=== PATIENT | female | born 1955 | race American Indian/Alaskan Native ===

== ENCOUNTER 2017-09-10 06:42 | Inpatient (IN) | payer MEDICARE ==
[2017-09-09 13:41] VITALS: BMI 38.4
--- NOTE | 2017-09-10 07:34 | CP.PCM.HP ---
History of Present Illness - History of Present Illness History of Present Illness: Patient is a 61 y/o F c/o Past Patient History - Past Medical History & Family History Past Medical History?: Yes - Past Social History Smoking Status: Never Smoked - CARDIAC Hx Cardiac Disorders: No - PULMONARY Hx Respiratory Disorders: No - NEUROLOGICAL Hx Neurological Disorder: No - HEENT Hx HEENT Problems: Yes Hx Glaucoma: Yes (tubes placed) - RENAL Hx Chronic Kidney Disease: No - ENDOCRINE/METABOLIC Hx Endocrine Disorders: No - HEMATOLOGICAL/ONCOLOGICAL Hx Blood Disorders: No - INTEGUMENTARY Hx Dermatological Problems: No - MUSCULOSKELETAL/RHEUMATOLOGICAL Hx Musculoskeletal Disorders: Yes Hx Arthritis: Yes (hips clint) - GASTROINTESTINAL Hx Gastrointestinal Disorders: No - GENITOURINARY/GYNECOLOGICAL Hx Genitourinary Disorders: No - PSYCHIATRIC Hx Psychophysiologic Disorder: No - SURGICAL HISTORY Hx Surgeries: Yes Hx Orthopedic Surgery: Yes (totoal right hip) - ANESTHESIA Hx Anesthesia: Yes Hx Anesthesia Reactions: No Hx Malignant Hyperthermia: No Has any member of the family had a problem w/ anesthesia?: No Meds Allergies/Adverse Reactions: Allergies Allergy/AdvReac Type Severity Reaction Status Date / Time erythromycin base Allergy RASH Verified 09/09/17 13:45 erth Allergy RASH Uncoded 09/09/17 13:45
--- NOTE | 2017-09-10 08:22 | CP.PCM.HP ---
History of Present Illness - History of Present Illness History of Present Illness: Chief Complaint : Left hip pain HPI: 61 y/o lady with hx of OA , Hx of Right THR, Lumbar Radiculopathy, Glaucoma, came in for scheduled Left THR. Patient has had long history of Osteoarthritis of both hips , spine and her hands. She had a hx of Right THR in 2010 for severe primary OA of her right hip. For the past few years her left hip has been bothering her and this worsened the past year making ambulation difficult. She has been treated by her PMD conservatively and also had been doing PT. Due to the worsening of her hip pain, she was referred to Dr Rea who did CT of her Hip shpowing Severe Degenerative disease. Patient's medical clearance in chart PMD : [facility] Present on Admission - Present on Admission Any Indicators Present on Admission: No Review of Systems - Review of Systems All systems: reviewed and no additional remarkable complaints except - Constitutional Constitutional: absent: Chills, Fever - EENT Eyes: Blurred Vision, Loss of Vision (due to Glaucoma) Ears: absent: Decreased Hearing, Ear Discharge, Other Nose/Mouth/Throat: absent: Nasal Congestion - Cardiovascular Cardiovascular: absent: Chest Pain, Chest Pain at Rest, Orthopnea, Palpitations , Paroxysmal Nocturnal Dyspnea - Respiratory Respiratory: absent: Cough, Dyspnea, Hemoptysis, Dyspnea on Exertion - Gastrointestinal Gastrointestinal: absent: Abdominal Pain, Nausea, Vomiting - Genitourinary Genitourinary: absent: Difficulty Urinating, Dysuria, Hematuria - Musculoskeletal Musculoskeletal: Abnormal Gait, Back Pain, Limited Range of Motion, Stiffness - Integumentary Integumentary: absent: Rash, Sores - Neurological Neurological: absent: Confusion, Focal Weakness, Headaches, Syncope - Psychiatric Psychiatric: absent: Anxiety, Depression, Suicidal Ideation - Endocrine Endocrine: absent: Polydipsia, Polyphagia, Polyuria - Hematologic/Lymphatic Hematologic: absent: Easy Bleeding, Easy Bruising Past Patient History - Infectious Disease Hx of Infectious Diseases: None - Tetanus Immunizations Tetanus Immunization: Unknown - Past Medical History & Family History Past Medical History?: Yes Past Family History: Reviewed and not pertinent Pertinent Family History: Mother from CHF complications Father : Alzheimer and Parkinsons - Past Social History Smoking Status: Light Smoker < 10 Cigarettes Daily Chewing Tobacco Use: No Cigar Use: No Occupation: retired medical doctor Alcohol: None Drugs: Denies Home Situation {Lives}: With Family Domestic Violence: Negative - CARDIAC Hx Cardiac Disorders: No - PULMONARY Hx Respiratory Disorders: No - NEUROLOGICAL Hx Neurological Disorder: No - HEENT Hx HEENT Problems: Yes Hx Cataracts: Yes Hx Glaucoma: Yes (tubes placed) - RENAL Hx Chronic Kidney Disease: No - ENDOCRINE/METABOLIC Hx Endocrine Disorders: No - HEMATOLOGICAL/ONCOLOGICAL Hx Blood Disorders: No - INTEGUMENTARY Hx Dermatological Problems: No - MUSCULOSKELETAL/RHEUMATOLOGICAL Hx Musculoskeletal Disorders: Yes Hx Arthritis: Yes (hips clint) Hx Back Pain: Yes Hx Degenerative Joint Disease: Yes Hx Herniated Disk: Yes Hx Osteoarthritis: Yes - GASTROINTESTINAL Hx Gastrointestinal Disorders: No - GENITOURINARY/GYNECOLOGICAL Hx Genitourinary Disorders: No - PSYCHIATRIC Hx Psychophysiologic Disorder: No - SURGICAL HISTORY Hx Surgeries: Yes Hx Orthopedic Surgery: Yes (right THR) Hx Tubal Ligation: Yes - ANESTHESIA Hx Anesthesia: Yes Hx Anesthesia Reactions: No Hx Malignant Hyperthermia: No Has any member of the family had a problem w/ anesthesia?: No Meds Allergies/Adverse Reactions: Allergies Allergy/AdvReac Type Severity Reaction Status Date / Time erythromycin base Allergy RASH Verified 09/10/17 07:49 erth Allergy RASH Uncoded 09/10/17 07:49 Physical Exam - Constitutional Appears: Well, No Acute Distress - Head Exam Head Exam: ATRAUMATIC, NORMAL INSPECTION, NORMOCEPHALIC - Eye Exam Eye Exam: EOMI Pupil Exam: NORMAL ACCOMODATION - ENT Exam ENT Exam: Mucous Membranes Moist, Normal External Ear Exam - Neck Exam Neck exam: Positive for: Full Rom. Negative for: Meningismus - Respiratory Exam Respiratory Exam: NORMAL BREATHING PATTERN. absent: Rales, Wheezes, Respiratory Distress - Cardiovascular Exam Cardiovascular Exam: REGULAR RHYTHM, +S1, +S2 - GI/Abdominal Exam GI & Abdominal Exam: Normal Bowel Sounds, Soft. absent: Tenderness - Extremities Exam Extremities exam: Positive for: normal capillary refill, pedal pulses present. Negative for: calf tenderness Additional comments: pain on ROM of left hip - Back Exam Back exam: absent: CVA tenderness (L), CVA tenderness (R) - Neurological Exam Neurological exam: Alert, CN II-XII Intact, Oriented x3, Reflexes Normal - Psychiatric Exam Psychiatric exam: Normal Affect, Normal Mood - Skin Skin Exam: Dry, Normal Color, Warm Results - Labs Result Diagrams: 09/10/17 08:34 Labs: reviewed labs done as outpt - EKG Data EKG Interpreted by: Other (done as outpt - reviewed) EKG shows normal: Sinus rhythm Rate: Normal Assessment & Plan (1) Primary osteoarthritis of left hip Status: Chronic Comment: Failed out patient conservtaive mgt. Severe degen joint dis on CT of hip done as outpt. Plan for Left THR. Ortho consult : Dr Steiner. Pre op medical eval done a outpt - labs , EKG , CXR in [facility]. Pain mgt. PT/OT post op. DVT proph post op (2) Glaucoma Status: Chronic Comment: cont eye drops- Timolol and Lanataprost (3) DVT prophylaxis Status: Acute Comment: start post op Decision To Admit - Pt Status Changed To: Hospital Disposition Of: Inpatient - Admit Certification Admit to Inpatient:: After my assessment, the patient will require hospitalization for at least two midnights. This is because of the severity of symptoms shown, intensity of services needed, and/or the medical risk in this patient being treated as an outpatient. - . Bed Request Type: Med/Surg Admitting Physician: Marcia Gorman
[2017-09-10 08:40] LABS: BASO # 0.1 K/uL (0.0-0.2); BASO % 1.2 % (0.0-2.0); EOS # 0.2 K/uL (0.0-0.7); EOS % 2.1 % (0.0-4.0); HEMOGLOBIN 13.7 g/dL (12.0-16.0); LYMPH # 3.4 K/uL (1.0-4.3); LYMPH % 41.6 % (20.0-40.0); MEAN CELL VOLUME 83.6 fl (81.0-99.0); MEAN CORPUSCULAR HEMOGLOBIN 28.4 pg (27.0-31.0); MEAN PLATELET VOLUME 9.3 fl (7.2-11.7); MONO # 0.5 K/uL (0.0-0.8); MONO % 6.7 % (0.0-10.0); NEUT # 3.9 K/uL (1.8-7.0); NEUT % 48.4 % (50.0-75.0); RBC 4.83 Mil/uL (3.80-5.20); RED CELL DISTRIBUTION WIDTH 15.3 % (11.5-14.5); WHITE BLOOD COUNT 8.1 K/uL (4.8-10.8)
[2017-09-10] MEDS ORDERED: Lactated Ringer's 1,000 ML IV ONE ×2 (08:55→15:00)
[2017-09-10] MEDS ORDERED: TRANEXAMIC ACID IVPB STA ×2 (11:16→11:27)
[2017-09-10] MEDS ORDERED: SODIUM CHLORIDE 0.9% IVPB STA ×2 (11:16→11:27)
[2017-09-10 11:26] LABS: SQUAMOUS EPITHIAL 1 /hpf (0-5); URINE BACTERIA RARE (<OCC); URINE BILIRUBIN NEGATIVE (NEGATIVE); URINE BLOOD NEGATIVE (NEGATIVE); URINE CLARITY CLEAR (Clear); URINE COLOR STRAW (YELLOW); URINE GLUCOSE (UA) NEG (Normal); URINE LEUKOCYTE ESTERASE NEG Leu/uL (Negative); URINE PROTEIN NEGATIVE (NEGATIVE); URINE UROBILINOGEN 0.2-1.0 mg/dL (0.2-1.0)
[2017-09-10] MEDS ORDERED: MethylPREDNISolone Depo 40 mg/ml Inj ONE (11:37)
[2017-09-10] MEDS ORDERED: Lidocaine Hydrochloride 1% 0 ML ONE (11:37)
[2017-09-10] MEDS ORDERED: Bupivacaine 0.5% Inj(30mL) ONE (11:37)
[2017-09-10] MEDS ORDERED: Absorbable Gelatin Sponge Size 100 ONE (11:38)
[2017-09-10] MEDS ORDERED: Thrombin Topical 5,000 Int Units Spray Kit ONE (11:38)
[2017-09-10] MEDS ORDERED: Bacitracin Ointment 30 GM TUBE ONE (11:38)
[2017-09-10] MEDS ORDERED: Rocuronium 10 mg/ml (5 ml) ONE ×3 (12:02→15:24)
[2017-09-10] MEDS ORDERED: Propofol 10 mg/ml Inj (20 ML) ONE (12:02)
[2017-09-10] MEDS ORDERED: Succinylcholine 200 mg/10 ml Inj IV ONE (12:02)
[2017-09-10] MEDS ORDERED: Bupivacaine HCl 0.5% PF (30 ml) Inj ONE (12:03)
[2017-09-10] MEDS ORDERED: Lidocaine 4% (Laryng-O-Jet) Kit MM ONE ×2 (12:03→12:43)
[2017-09-10] MEDS ORDERED: EPINEPHrine 1 mg/ml (1:1000) Inj ONE (12:12)
[2017-09-10] MEDS ORDERED: Midazolam 2 MG/2 ML VIAL ONE (12:28)
[2017-09-10] MEDS ORDERED: Tranexamic Acid 100 mg/ml IV ONE (13:05)
[2017-09-10] MEDS ORDERED: Sevoflurane - Inhalation Anesthetic Liq (250 ml) ONE (14:04)
[2017-09-10] MEDS ORDERED: Oxycodone/Acetaminophen 5/325 mg Tab PO PRN (15:33)
[2017-09-10] MEDS ORDERED: Bacitracin OINT 15GM TOP ONE (16:30)
--- NOTE | 2017-09-10 16:42 | PCM.SURG1 ---
Surgeon's Initial Post Op Note - Surgeon's Notes Surgeon: Obdulia Binder Technician: PETRA Harp/2nd assist Won Rice PA-C Type of Anesthesia: General Endo, Block Regional Anesthesia Administered By: Dr Tay/DR Weber Pre-Operative Diagnosis: Severe hypertrophic O/A R hip Operative Findings: sEVERE PRIMARY HYPERTROPHIC o/a r HIP Post-Operative Diagnosis: ABOVE Operation Performed: R THR. femoral neck osteotomy. release uilipsoaos tendon\ . autograft bone graft to acetabulum Specimen/Specimens Removed: bone cartilage tendon Estimated Blood Loss: EBL {In ML}: 200 Blood Products Given: N/A Drains Used: No Drains Post-Op Condition: Good Date of Surgery/Procedure: 09/10/17 Time of Surgery/Procedure: 13:50 (time in room 12:40)
--- NOTE | 2017-09-10 16:44 | CP.PCM.CON ---
History of Present Illness - History of Present Illness History of Present Illness: Patient is a 61 y/o female with c/o L hip pain for many years that has progressively worsened over the past few months. The pain has severely limited her activities of daily living including walking, sitting and bending. The pain has been resistant to conservative means with PT and oral medications. The pain is severe, dull and aching and located in the groin and lateral hip. She has history of succesful R AMINA. She denies any radiation of pain, numbness or tingling to the lower extremities. He denies CP/SOB/N/V/D/SUMMERS/dysuria/melena. Review of Systems - Review of Systems All systems: reviewed and no additional remarkable complaints except Review of Systems: as per HPI Past Patient History - Infectious Disease Hx of Infectious Diseases: None - Tetanus Immunizations Tetanus Immunization: Unknown - Past Medical History & Family History Past Medical History?: Yes Past Family History: Reviewed and not pertinent - Past Social History Smoking Status: Light Smoker < 10 Cigarettes Daily Alcohol: Occasional Drugs: Denies - CARDIAC Hx Cardiac Disorders: No - PULMONARY Hx Respiratory Disorders: No - NEUROLOGICAL Hx Neurological Disorder: No - HEENT Hx HEENT Problems: Yes Hx Cataracts: Yes Hx Glaucoma: Yes (tubes placed) - RENAL Hx Chronic Kidney Disease: No - ENDOCRINE/METABOLIC Hx Endocrine Disorders: No - HEMATOLOGICAL/ONCOLOGICAL Hx Blood Disorders: No - INTEGUMENTARY Hx Dermatological Problems: No - MUSCULOSKELETAL/RHEUMATOLOGICAL Hx Musculoskeletal Disorders: Yes Hx Arthritis: Yes (hips clint) Hx Back Pain: Yes Hx Degenerative Joint Disease: Yes Hx Herniated Disk: Yes Hx Osteoarthritis: Yes - GASTROINTESTINAL Hx Gastrointestinal Disorders: No - GENITOURINARY/GYNECOLOGICAL Hx Genitourinary Disorders: No - PSYCHIATRIC Hx Psychophysiologic Disorder: No - SURGICAL HISTORY Hx Surgeries: Yes Hx Orthopedic Surgery: Yes (right THR) Hx Tubal Ligation: Yes - ANESTHESIA Hx Anesthesia: Yes Hx Anesthesia Reactions: No Hx Malignant Hyperthermia: No Has any member of the family had a problem w/ anesthesia?: No Meds Allergies/Adverse Reactions: Allergies Allergy/AdvReac Type Severity Reaction Status Date / Time erythromycin base Allergy RASH Verified 09/10/17 07:49 erth Allergy RASH Uncoded 09/10/17 07:49 - Medications Medications: Current Medications Acetaminophen (Tylenol 325mg Tab) 650 mg PO Q4 PRN PRN Reason: Fever 101 degrees fahrenheit Docusate Sodium (Colace) 100 mg PO BID JOSE Enoxaparin Sodium (Lovenox) 40 mg SC Q24H JOSE PRN Reason: Protocol Home Med (Dorzolamide Hcl/Timolol Maleat [Dorzolamide-Timolol Eye Drops]) 10 ml BOTHEYES BID JOSE Cefazolin Sodium 2 gm/ Sodium (Chloride) 100 mls @ 100 mls/hr IVPB Q8H JOSE PRN Reason: Protocol Stop: 09/11/17 04:59 Sodium Chloride (Sodium Chloride 0.9%) 1,000 mls @ 100 mls/hr IV .Q10H JOSE Stop: 09/11/17 15:35 Latanoprost (Xalatan Opht) 1 drop OU HS JOSE Morphine Sulfate (Morphine) 4 mg IVP Q4 PRN PRN Reason: Pain, severe (8-10) Ondansetron HCl (Zofran Inj) 4 mg IVP Q6 PRN PRN Reason: Nausea/Vomiting Oxycodone/Acetaminophen (Percocet 5/325 Mg Tab) 1 tab PO Q4 PRN PRN Reason: Pain, moderate (4-7) Stop: 09/13/17 15:34 Physical Exam - Constitutional Appears: No Acute Distress - Head Exam Head Exam: ATRAUMATIC, NORMOCEPHALIC - Eye Exam Eye Exam: EOMI, PERRL - ENT Exam ENT Exam: Mucous Membranes Moist - Respiratory Exam Respiratory Exam: NORMAL BREATHING PATTERN - GI/Abdominal Exam GI & Abdominal Exam: Soft. absent: Tenderness - Extremities Exam Additional comments: L hip: + tenderness to groin and lateral hip, no lesion or deformity restricted ROM secondary to pain sensation intact SP/DP/TN motor intact EHL/FHL/TA/G pedal pulses intact comp soft NT R hip: no tenderness to groin and lateral hip, no deformity, old AMINA scar laterally FROM sensation intact SP/DP/TN motor intact EHL/FHL/TA/G pedal pulses intact comp soft NT Results - Vital Signs Recent Vital Signs: Last Vital Signs Temp 98 F 09/10/17 08:00 Pulse 60 09/10/17 08:00 Resp 18 09/10/17 08:00 BP 144/84 09/10/17 08:00 Pulse Ox 98 09/10/17 08:00 - Labs Result Diagrams: 09/10/17 08:34 Labs: Laboratory Results - last 24 hr 09/10/17 09/10/17 09/10/17 08:34 08:34 09:24 WBC 8.1 RBC 4.83 Hgb 13.7 Hct 40.4 MCV 83.6 MCH 28.4 MCHC 34.0 RDW 15.3 H Plt Count 217 MPV 9.3 Neut % (Auto) 48.4 L Lymph % (Auto) 41.6 H [place] % (Auto) 6.7 Eos % (Auto) 2.1 Baso % (Auto) 1.2 Neut # (Auto) 3.9 Lymph # (Auto) 3.4 [place] # (Auto) 0.5 Eos # (Auto) 0.2 Baso # (Auto) 0.1 Urine Color Urine Clarity Urine pH Ur Specific [place] Urine Protein Urine Glucose (UA) Urine Ketones Urine Blood Urine Nitrate Urine Bilirubin Urine Urobilinogen Ur Leukocyte Esterase Urine RBC (Auto) Urine Microscopic WBC Ur Squamous Epith Cells Urine Bacteria Blood Type O POSITIVE Blood Type Confirm O POSITIVE Antibody Screen Negative Crossmatch See Detail BBK History Checked No verified bt 09/10/17 11:14 WBC RBC Hgb Hct MCV MCH MCHC RDW Plt Count MPV Neut % (Auto) Lymph % (Auto) [place] % (Auto) Eos % (Auto) Baso % (Auto) Neut # (Auto) Lymph # (Auto) [place] # (Auto) Eos # (Auto) Baso # (Auto) Urine Color Straw Urine Clarity Clear Urine pH 6.0 Ur Specific [place] 1.008 Urine Protein Negative Urine Glucose (UA) Neg Urine Ketones Negative Urine Blood Negative Urine Nitrate Negative Urine Bilirubin Negative Urine Urobilinogen 0.2-1.0 Ur Leukocyte Esterase Neg Urine RBC (Auto) < 1 Urine Microscopic WBC 1 Ur Squamous Epith Cells 1 Urine Bacteria Rare Blood Type Blood Type Confirm Antibody Screen Crossmatch BBK History Checked Assessment & Plan (1) Primary osteoarthritis of left hip Assessment and Plan: -OR for Right total hip arthroplasty -medically cleared for procedure -Patient was explained the benefits/risks/adv/disadv of surgery in detail. Patient expresses understanding and agrees to proceed with above procedure -above d/w Dr. Steiner in agreement Status: Chronic
[2017-09-10] MEDS ORDERED: Morphine 4 MG/ML VIAL ONE (16:58)
[2017-09-10] MEDS ORDERED: [UNRECOGNIZED DRUG - OTHER] BOTHEYES SCH (17:00)
[2017-09-10] MEDS ORDERED: DORZOLAMIDE HCL BOTHEYES SCH (17:00)
[2017-09-10] MEDS ORDERED: TIMOLOL MALEAT BOTHEYES SCH (17:00)
--- NOTE | 2017-09-10 17:21 | CP.PCM.PN ---
Subjective - Date & Time of Evaluation Date of Evaluation: 09/10/17 Time of Evaluation: 17:07 - Subjective Subjective: Fascia Iliaca Block: After discussing with patient the risk and benefits of the block, the patient agreed and signed the consent. Patient brought to the operating room. Standard monitors placed and general anesthesia induced. While still under general anesthesia, left groin and pelvic area aseptically cleansed with chloraprep. Under ultrasound guidance, the transducer placed in a diagonal orientation toward the umbilicus. fascia iliaca identified just beneath the external oblique muscle. Stimuplex 21G X 4 inch needle introduced on an in-plane approach caudad to cephalad. Needle tip position just beneath the fascia iliaca. After repeated negative aspiration, 5ml of 0.25% Bupivacaine with 1:200, 000 epinephrine was injected followed by 35ml of 0.25% bupivacaine with epinephrine. No complication noted. Patient subsequently was prepared for the proposed surgery. Objective - Vital Signs/Intake and Output Vital Signs (last 24 hours): Temp Pulse Resp BP Pulse Ox 98 F 60 18 144/84 98 09/10/17 08:00 09/10/17 08:00 09/10/17 08:00 09/10/17 08:00 09/10/17 08:00 - Medications Medications: Current Medications Acetaminophen (Tylenol 325mg Tab) 650 mg PO Q4 PRN PRN Reason: Fever 101 degrees fahrenheit Docusate Sodium (Colace) 100 mg PO BID JOSE Enoxaparin Sodium (Lovenox) 40 mg SC Q24H JOSE PRN Reason: Protocol Home Med (Dorzolamide Hcl/Timolol Maleat [Dorzolamide-Timolol Eye Drops]) 10 ml BOTHEYES BID JOSE Hydromorphone HCl (Dilaudid 0.2 Mg/Ml Commodities Broker) 6 mg IV PRN PRN; Protocol PRN Reason: Pain, moderate (4-7) Cefazolin Sodium 2 gm/ Sodium (Chloride) 100 mls @ 100 mls/hr IVPB Q8H JOSE PRN Reason: Protocol Stop: 09/11/17 04:59 Sodium Chloride (Sodium Chloride 0.9%) 1,000 mls @ 100 mls/hr IV .Q10H JOSE Stop: 09/11/17 15:35 Lactated Ringer's (Lactated Ringer's) 1,000 mls @ 100 mls/hr IV .Q10H JOSE Latanoprost (Xalatan Opht) 1 drop OU HS JOSE Morphine Sulfate (Morphine) 4 mg IVP Q4 PRN PRN Reason: Pain, severe (8-10) Morphine Sulfate (Morphine) 2 mg IVP Q10M PRN PRN Reason: Pain, moderate (4-7) Stop: 09/10/17 18:50 Ondansetron HCl (Zofran Inj) 4 mg IVP Q6 PRN PRN Reason: Nausea/Vomiting Ondansetron HCl (Zofran Inj) 4 mg IVP ONCE PRN PRN Reason: Nausea/Vomiting Stop: 09/10/17 18:51 Oxycodone/Acetaminophen (Percocet 5/325 Mg Tab) 1 tab PO Q4 PRN PRN Reason: Pain, moderate (4-7) Stop: 09/13/17 15:34 - Labs Labs: 09/10/17 08:34
--- NOTE | 2017-09-10 17:33 | RAD ---
PROCEDURE: Left Hip X-ray Radiographs. HISTORY: s/p L AMINA COMPARISON: None. FINDINGS: BONES: Expected postoperative changes left hip status post left AMINA. JOINTS: Normal. SOFT TISSUES: Soft tissue findings in the surgical site, of air identified. OTHER FINDINGS: None. IMPRESSION: Satisfactory postoperative status.
[2017-09-10] MEDS ORDERED: Bupivacaine HCl 0.25% PF (30 ml) Inj ONE (18:36)
[2017-09-10] MEDS: Lactated Ringer's 1,000 ML IV SCH (19:13)
[2017-09-10] MEDS: Sodium Chloride 0.9% 1,000 ML IV SCH (20:00)
[2017-09-10] MEDS: ceFAZolin 2 GM in Sodium Chloride 0.9% 100 ML IVPB SCH (20:40)
[2017-09-10] MEDS: Latanoprost 0.005% Opht SOUTION OU SCH (23:55)
[2017-09-11] MEDS: Sodium Chloride 0.9% 1,000 ML IV SCH ×2 (01:53→11:15)
[2017-09-11] MEDS: ceFAZolin 2 GM in Sodium Chloride 0.9% 100 ML IVPB SCH (03:51)
[2017-09-11] MEDS: Lactated Ringer's 1,000 ML IV SCH (03:53)
[2017-09-11 06:56] LABS: BLOOD UREA NITROGEN 11 mg/dl (7-17); CALCIUM 8.8 mg/dL (8.4-10.2); GFR AFRICAN-AMERICAN > 60; GFR NON-AFRICAN AMERICAN > 60
[2017-09-11] MEDS ORDERED: Potassium Chloride 20 mEq ER Tab PO ONE (07:47)
[2017-09-11 08:03] LABS: HEMOGLOBIN 11.9 g/dL (12.0-16.0); MEAN CELL VOLUME 82.6 fl (81.0-99.0); MEAN CORPUSCULAR HEMOGLOBIN 28.1 pg (27.0-31.0); MEAN CORPUSCULAR HGB CONC 34.1 g/dL (33.0-37.0); RBC 4.23 Mil/uL (3.80-5.20); WHITE BLOOD COUNT 13.2 K/uL (4.8-10.8)
[2017-09-11] MEDS ORDERED: Povidone Iodine Topical 10% Sol ONE (08:24)
[2017-09-11] MEDS: Dorzolamide 2% Ophth Soln OU SCH ×2 (08:50→16:46)
--- NOTE | 2017-09-11 09:41 | CP.PCM.PN ---
Subjective - Date & Time of Evaluation Date of Evaluation: 09/11/17 Time of Evaluation: 09:39 - Subjective Subjective: Ortho f/u Dr. 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 Denies CP/SOB/ dizziness/numbness/tingling. Says she is hungry. Objective - Vital Signs/Intake and Output Vital Signs (last 24 hours): Temp Pulse Resp BP Pulse Ox 98.8 F 94 H 19 123/74 94 L 09/11/17 07:58 09/11/17 07:58 09/11/17 07:58 09/11/17 07:58 09/11/17 07:58 Intake and Output: 09/11/17 09/11/17 06:59 18:59 Intake Total 400 Output Total 350 Balance 50 - Medications Medications: Current Medications Acetaminophen (Tylenol 325mg Tab) 650 mg PO Q4 PRN PRN Reason: Fever 101 degrees fahrenheit Docusate Sodium (Colace) 100 mg PO BID [facility] Last Admin: 09/11/17 08:48 Dose: 100 mg Dorzolamide HCl (Trusopt) 1 drop OU BID [facility] Last Admin: 09/11/17 08:50 Dose: 1 drop Enoxaparin Sodium (Lovenox) 40 mg SC Q24H [facility] PRN Reason: Protocol Sodium Chloride (Sodium Chloride 0.9%) 1,000 mls @ 100 mls/hr IV .Q10H [facility] Stop: 09/11/17 15:35 Last Admin: 09/11/17 01:53 Dose: Not Given Latanoprost (Xalatan Opht) 1 drop OU HS [facility] Last Admin: 09/10/17 23:55 Dose: 1 drop Morphine Sulfate (Morphine) 4 mg IVP Q4 PRN PRN Reason: Pain, severe (8-10) Morphine Sulfate (Morphine Methodologist 1 Mg/Ml) 0 mg IV PRN PRN; Protocol PRN Reason: Pain, moderate (4-7) Last Admin: 09/11/17 05:39 Dose: 30 mg Ondansetron HCl (Zofran Inj) 4 mg IVP Q6 PRN PRN Reason: Nausea/Vomiting Oxycodone/Acetaminophen (Percocet 5/325 Mg Tab) 1 tab PO Q4 PRN PRN Reason: Pain, moderate (4-7) Stop: 09/13/17 15:34 Timolol Maleate (Timoptic 0.5% Ophth Soln) 1 drop OU BID JOSE Last Admin: 09/11/17 08:50 Dose: 1 drop - Labs Labs: 09/11/17 06:30 09/11/17 05:40 - Extremities Exam Additional comments: Left hip: dressing changed. Incision intact, no erythema, scant drainage, betadine dressing applied.+ROM ankle/toes, sensation intact +DP/PT pulses calves soft NT neg homans Assessment and Plan (1) Primary osteoarthritis of left hip Assessment & Plan: POD#1 s/p Left total hip replacement post op imaging reviewed, acceptable positiion VTE proph aspirin as per prt Dr. Steiner patient encouraged OOB/PT participation d/c planning K supp ortho stable will add dose of toradol for pain control dHermelindaw Dr. Steiner, agrees with above Status: Chronic
--- NOTE | 2017-09-11 13:30 | CP.PCM.PN ---
Subjective - Date & Time of Evaluation Date of Evaluation: 09/11/17 Time of Evaluation: 13:30 - Subjective Subjective: Pt has no fever Post op pain controlled Participated with PT now sitted on chair denies CP no SOB no abd pain Objective - Vital Signs/Intake and Output Vital Signs (last 24 hours): Temp Pulse Resp BP Pulse Ox 98.8 F 86 19 129/88 94 L 09/11/17 07:58 09/11/17 09:30 09/11/17 07:58 09/11/17 09:30 09/11/17 09:30 Intake and Output: 09/11/17 09/11/17 06:59 18:59 Intake Total 400 Output Total 350 Balance 50 - Medications Medications: Current Medications Acetaminophen (Tylenol 325mg Tab) 650 mg PO Q4 PRN PRN Reason: Fever 101 degrees fahrenheit Docusate Sodium (Colace) 100 mg PO BID [facility] Last Admin: 09/11/17 08:48 Dose: 100 mg Dorzolamide HCl (Trusopt) 1 drop OU BID [facility] Last Admin: 09/11/17 08:50 Dose: 1 drop Enoxaparin Sodium (Lovenox) 40 mg SC Q24H JOSE PRN Reason: Protocol Sodium Chloride (Sodium Chloride 0.9%) 1,000 mls @ 100 mls/hr IV .Q10H [facility] Stop: 09/11/17 15:35 Last Admin: 09/11/17 11:15 Dose: 100 mls/hr Latanoprost (Xalatan Opht) 1 drop OU HS [facility] Last Admin: 09/10/17 23:55 Dose: 1 drop Morphine Sulfate (Morphine) 4 mg IVP Q4 PRN PRN Reason: Pain, severe (8-10) Morphine Sulfate (Morphine Rehab Aide 1 Mg/Ml) 0 mg IV PRN PRN; Protocol PRN Reason: Pain, moderate (4-7) Last Admin: 09/11/17 05:39 Dose: 30 mg Ondansetron HCl (Zofran Inj) 4 mg IVP Q6 PRN PRN Reason: Nausea/Vomiting Oxycodone/Acetaminophen (Percocet 5/325 Mg Tab) 1 tab PO Q4 PRN PRN Reason: Pain, moderate (4-7) Stop: 09/13/17 15:34 Timolol Maleate (Timoptic 0.5% Ophth Soln) 1 drop OU BID JOSE Last Admin: 09/11/17 08:50 Dose: 1 drop - Labs Labs: 09/11/17 06:30 09/11/17 05:40 - Constitutional Appears: No Acute Distress - Head Exam Head Exam: ATRAUMATIC, NORMAL INSPECTION, NORMOCEPHALIC - Eye Exam Eye Exam: EOMI, Normal appearance - ENT Exam ENT Exam: Mucous Membranes Moist, Normal External Ear Exam - Neck Exam Neck Exam: Full ROM. absent: Meningismus - Respiratory Exam Respiratory Exam: NORMAL BREATHING PATTERN. absent: Rales, Wheezes, Respiratory Distress - Cardiovascular Exam Cardiovascular Exam: REGULAR RHYTHM, +S1, +S2 - GI/Abdominal Exam GI & Abdominal Exam: Soft, Normal Bowel Sounds. absent: Tenderness - Extremities Exam Extremities Exam: Normal Capillary Refill. absent: Calf Tenderness Additional comments: left hip with dressing - Back Exam Back Exam: Full ROM. absent: CVA tenderness (L), CVA tenderness (R) - Neurological Exam Neurological Exam: Alert, Awake, CN II-XII Intact, Oriented x3 Neuro motor strength exam: Left Upper Extremity: 5, Right Upper Extremity: 5, Left Lower Extremity: 5, Right Lower Extremity: 5 - Psychiatric Exam Psychiatric exam: Normal Affect, Normal Mood - Skin Skin Exam: Dry, Normal Color, Warm Assessment and Plan (1) Primary osteoarthritis of left hip Status: Chronic (2) Glaucoma Status: Chronic (3) DVT prophylaxis Status: Acute - Assessment and Plan (Free Text) Assessment: 61 y/o lady with hx of OA , Hx of Right THR, Lumbar Radiculopathy, Glaucoma, came in for scheduled Left THR. Patient has had long history of Osteoarthritis of both hips , spine and her hands. She had a hx of Right THR in 2010 for severe primary OA of her right hip. For the past few years her left hip has been bothering her and this worsened the past year making ambulation difficult. She has been treated by her PMD conservatively and also had been doing PT. Due to the worsening of her hip pain, she was referred to Dr Steiner who did CT of her Hip w/c showed Severe Degenerative disease. 09/10: Left THR done (1) Primary osteoarthritis of left hip s/p Left THR Failed out patient conservative mgt. Severe degen joint dis on CT of hip done as outpt. Ortho consult : Dr Steiner. Pain mgt PT/OT consult DVT proph Received Ancef x 3 doses Plan for d/c to TCU in am (2) Glaucoma Status: Chronic cont eye drops- Timolol and Lanataprost (3) DVT prophylaxis Lovenox
[2017-09-11] MEDS ORDERED: Enoxaparin 40 mg Syringe SC SCH ×2 (16:00)
--- NOTE | 2017-09-11 16:45 | RAD ---
PROCEDURE: Intraoperative fluoroscopy HISTORY: LEFT HIP COMPARISON: Not available TECHNIQUE: Intraoperative fluoroscopy was provided in conjunction with left hip arthroplasty. Total time of fluoroscopy was 32.0 seconds. FINDINGS: Multiple fluoroscopic spot films are submitted. IMPRESSION: Fluoroscopy provided.
[2017-09-11] MEDS: Latanoprost 0.005% Opht SOUTION OU SCH (22:58)
[2017-09-12] MEDS: Dorzolamide 2% Ophth Soln OU SCH (08:55)
--- NOTE | 2017-09-12 11:48 | CP.PCM.DIS ---
Provider - Provider Date of Admission: 09/10/17 15:33 Attending physician: Marcia Gorman MD Primary care physician: NO FAMILY PROVIDER Consults: Dr Steiner Time Spent in preparation of Discharge (in minutes): 25 Diagnosis - Discharge Diagnosis (1) Primary osteoarthritis of left hip Status: Chronic Comment: post op day # 2. pain well controlled. continue PT/OT (2) Glaucoma Status: Chronic Comment: continue Timolol and Lanataprost Hospital Course - Lab Results Lab Results: Most Recent Lab Values WBC 13.2 K/uL (4.8-10.8) H D 09/11/17 06:30 RBC 4.23 Mil/uL (3.80-5.20) 09/11/17 06:30 Hgb 11.9 g/dL (12.0-16.0) L 09/11/17 06:30 Hct 34.9 % (34.0-47.0) 09/11/17 06:30 MCV 82.6 fl (81.0-99.0) 09/11/17 06:30 MCH 28.1 pg (27.0-31.0) 09/11/17 06:30 MCHC 34.1 g/dL (33.0-37.0) 09/11/17 06:30 RDW 15.0 % (11.5-14.5) H 09/11/17 06:30 Plt Count 177 K/uL (130-400) 09/11/17 06:30 MPV 9.3 fl (7.2-11.7) 09/10/17 08:34 Neut % (Auto) 48.4 % (50.0-75.0) L 09/10/17 08:34 Lymph % (Auto) 41.6 % (20.0-40.0) H 09/10/17 08:34 [place] % (Auto) 6.7 % (0.0-10.0) 09/10/17 08:34 Eos % (Auto) 2.1 % (0.0-4.0) 09/10/17 08:34 Baso % (Auto) 1.2 % (0.0-2.0) 09/10/17 08:34 Neut # (Auto) 3.9 K/uL (1.8-7.0) 09/10/17 08:34 Lymph # (Auto) 3.4 K/uL (1.0-4.3) 09/10/17 08:34 [place] # (Auto) 0.5 K/uL (0.0-0.8) 09/10/17 08:34 Eos # (Auto) 0.2 K/uL (0.0-0.7) 09/10/17 08:34 Baso # (Auto) 0.1 K/uL (0.0-0.2) 09/10/17 08:34 Sodium 144 mmol/l (132-148) 09/11/17 05:40 Potassium 3.5 MMOL/L (3.6-5.0) L 09/11/17 05:40 Chloride 105 mmol/L (98-107) 09/11/17 05:40 Carbon Dioxide 23 mmol/L (22-30) 09/11/17 05:40 Anion Gap 20 (10-20) 09/11/17 05:40 BUN 11 mg/dl (7-17) 09/11/17 05:40 Creatinine 0.7 mg/dl (0.7-1.2) 09/11/17 05:40 Est GFR ( Amer) > 60 09/11/17 05:40 Est GFR (Non-Af Amer) > 60 09/11/17 05:40 Random Glucose 114 mg/dL (65-105) H 09/11/17 05:40 Calcium 8.8 mg/dL (8.4-10.2) 09/11/17 05:40 25-OH Vitamin D Total 23.9 NG/ML (30.0-100.0) L 09/11/17 05:40 Urine Color Straw (YELLOW) 09/10/17 11:14 Urine Clarity Clear (Clear) 09/10/17 11:14 Urine pH 6.0 (5.0-8.0) 09/10/17 11:14 Ur Specific [place] 1.008 (1.003-1.030) 09/10/17 11:14 Urine Protein Negative mg/dL (NEGATIVE) 09/10/17 11:14 Urine Glucose (UA) Neg mg/dL (Normal) 09/10/17 11:14 Urine Ketones Negative mg/dL (NEGATIVE) 09/10/17 11:14 Urine Blood Negative (NEGATIVE) 09/10/17 11:14 Urine Nitrate Negative (NEGATIVE) 09/10/17 11:14 Urine Bilirubin Negative (NEGATIVE) 09/10/17 11:14 Urine Urobilinogen 0.2-1.0 mg/dL (0.2-1.0) 09/10/17 11:14 Ur Leukocyte Esterase Neg Yvette/uL (Negative) 09/10/17 11:14 Urine RBC (Auto) < 1 /hpf (0-3) 09/10/17 11:14 Urine Microscopic WBC 1 /hpf (0-5) 09/10/17 11:14 Ur Squamous Epith Cells 1 /hpf (0-5) 09/10/17 11:14 Urine Bacteria Rare (<OCC) 09/10/17 11:14 Blood Type O POSITIVE 09/10/17 08:34 Blood Type Confirm O POSITIVE 09/10/17 09:24 Antibody Screen Negative 09/10/17 08:34 Crossmatch See Detail 09/10/17 08:34 BBK History Checked No verified bt 09/10/17 08:34 - Hospital Course Hospital Course: 61 yo female with history of OA, Lumbar Radiculopathy and Glaucoma had left THR on 09/10/2017 after failing conservative management and PT. She did well post op and now is ready for transfer to TCU where she would continue her therapy. Discharge Exam - Head Exam Head Exam: ATRAUMATIC, NORMAL INSPECTION, NORMOCEPHALIC - Eye Exam Eye Exam: absent: Scleral icterus - ENT Exam ENT Exam: Mucous Membranes Moist - Respiratory Exam Respiratory Exam: absent: Rales, Rhonchi, Wheezes, Respiratory Distress - Cardiovascular Exam Cardiovascular Exam: REGULAR RHYTHM, +S1, +S2 - GI/Abdominal Exam GI & Abdominal Exam: Soft. absent: Tenderness - Rectal Exam Rectal Exam: Deferred - Back Exam Back exam: absent: tenderness - Neurological Exam Neurological exam: Alert, Oriented x3 - Psychiatric Exam Psychiatric exam: Normal Affect - Skin Skin Exam: Dry, Intact Discharge Plan - Follow Up Plan Condition: GOOD Disposition: REHAB FACILITY/REHAB UNIT Instructions: Osteoarthritis (DC), Total Hip Replacement (DC) Referrals: Dusty Steiner III, MD [Family Provider] -
[2017-09-12 15:13] VITALS: BP 110/74; PULSE 97; RESP 20; TEMP 99.4; O2SAT 98
--- NOTE | 2017-09-12 16:48 | OP ---
PROCEDURE DATE: 09/10/2017 PREOPERATIVE DIAGNOSES: 1. Severe hypertrophic osteoarthritis of the left hip. 2. Morbid obesity. OPERATIVE FINDINGS: 1. Severe primary hypertrophic osteoarthritis of the left hip. 2. Contracture of iliopsoas tendon. 3. Synovitis of the hip joint. POSTOPERATIVE DIAGNOSES: 1. Severe hypertrophic osteoarthritis of the left hip. 2. Morbid obesity. OPERATION PERFORMED: 1. Left total hip replacement arthroplasty. 2. Femoral neck osteotomy. 3. Release iliopsoas tendon. 4. Autograft bone graft to the acetabulum. SPECIMENS REMOVED: Bone, cartilage, tendon. ESTIMATED BLOOD LOSS: 200 mL. TYPE OF ANESTHESIA: General and regional block anesthesia. ANESTHESIA ADMINISTERED BY: Augusto Reeder MD and James Tay MD BLOOD PRODUCTS GIVEN: None. DRAINS USED: None. POSTOPERATIVE CONDITION: Stable. DATE OF SURGERY: 09/10/2017 TIME OF SURGERY: The patient in the room at 1240 hours and incision time 1350 hours. OPERATIVE INDICATION: Liberty Da Silva is a 61-year-old woman, morbidly obese with a BMI of approximately 41, who presents with severe left hip pain and restricted range of motion. The patient has had a contralateral right total hip replacement, can no longer withstand the discomfort and wished the left hip to be operated. Pros, cons, risks and benefits of surgical approach were discussed. The patient has had severe pain and restricted range of motion of the left hip for a period of time. The patient presents with marked discomfort, pain and restricted range of motion which has been refractory to a conservative course consisting of attempted weight loss, activity modification and therapy. The patient has no radicular symptoms. There was evidence of primary hip pain. The patient failed conservative management. Pros, cons, risks and benefits of surgical approach were discussed. The possibility of mechanical failure, infection, thromboembolic disease, secondary or tertiary surgery were discussed. The patient can no longer withstand the discomfort. DESCRIPTION OF THE PROCEDURE: After having obtained informed consent in the above fashion, after having identified the left hip is the correct hip, after having identified the left side, site and procedure and a critical pause/time-out and after the satisfactory induction of regional and general anesthesia, the patient identified as Liberty Da Silva is placed in supine position in the [facility] positioner. All bony prominences were well padded. Great care was taken at the operative field and was sterilely prepped and draped. Under the surgeon's direction, the fluoroscope was positioned, video images were generated, therapeutic decisions were made therefrom. It was noted that there was evidence of a leg-length inequality, the patient has presented with marked discomfort and wished the surgery to be accomplished. Again after sterilely prepping and draping, after having identified the side, site and procedure and critical pause/time-out, after the satisfactory induction of the anesthetic, an incision was accomplished 2 cm distal to the anterior superior iliac spine and 3 cm posterior. The skin incision was carried down through the skin and subcutaneous tissue. The tensor fascia femoris muscle was taken down from the investing fascia and at this point in time, the Toni, the Medacta modification retractor was introduced. The fascia at the posterior aspect of the rectus femoris was identified and developed. Hemostasis was controlled with the Aquamantys and with the electrocautery. This having been accomplished, the fascia having been identified and carefully divided. The lateral femoral circumflex was in particular the anterior branch of the lateral femoral circumflex vessels were identified. These were identified and controlled with the ligature and Aquamantys. This having been accomplished, a capsulotomy was accomplished with the reflected head of rectus femoris having been identified prior and released deep to the fat pad of [place]. The fat pad was excised with internal rotation of the hip, reflected head of rectus femoris was divided. This having been accomplished with further external rotation, a capsulotomy was accomplished to the area of the intertrochanteric line, identified by the intertrochanteric tubercle. This was elevated and the capsular flap was tagged . At this point in time, again with reference from preoperative planning, a femoral neck osteotomy was accomplished. Femoral neck osteotomy having been accomplished and the Medacta retractors having been placed, the head was removed from the acetabulum. The head was found to measure approximately 44 mm and the pulvinar was excised and the acetabulum was exposed. Arthrotomy and synovectomy was accomplished at this point in time. The pulvinar was excised and the acetabulum was exposed. The labrum was excised. Reaming was carried out to a 52-mm reamer which was introduced, the reamings were denuded of articular cartilage and prepared for bone grafting. This having been accomplished, reaming was accomplished posteriorly, medially and in the plane of the cup after having reamed to 50 mm, the 50-mm Medacta cup was impacted in approximately 40 degrees of abduction and 15 degrees of anteversion. This having been accomplished, attention was turned to the femur. It should be noted that autograft bone grafting had been applied to the acetabulum before impaction of the cup and the cup having been impacted, attention was now turned to the femur. With progressive external rotation of the femur, the iliopsoas tendon and the pubofemoral ligament was released. Hemostasis was controlled with the Aquamantys. The ischial femoral and iliofemoral ligaments were released. This having been accomplished with the retractors having been placed and the femur having been developed in the wound, the bridge bone between the neck and the trochanter was removed using the box chisel and the bur was used to open the canal. By the way, it should be noted that the femoral neck osteotomy had been accomplished after thorough planning both intraoperatively, preoperatively and virtually with intraoperative x-ray control. The femoral neck osteotomy having been accomplished, the head was removed from the femur and synovectomy and excision of the pulvinar was then accomplished. The remaining of the acetabular preparation was as above. This having been accomplished, the femur with progressive external rotation to approximately 155 degrees was now hyperextended, the femur was delivered into the wound and abducted. The remaining of the ischial femoral and iliofemoral ligaments were released. Hemostasis controlled with the Aquamantys. A broaching was carried up to a number 3 femoral component which was found to be stable. Standard neck and neutral head was applied and found to be unstable. At this point in time, the number 4 femoral component was introduced with the 3.5 head and this was found to be stable with the outer bearing 50 mm. At this point time with the +3.5 head, standard neck employed, the broach was removed and the femoral stem was introduced. Autograft bone grafting was accomplished to the proximal femur. The 28 mm head with the 50 mm outer bearing was impacted. The hip was reduced and found to be stable in all planes. This having been accomplished, hemostasis controlled with the thrombin Gelfoam, FloSeal and the Aquamantys . Closures in layers 0 Quill from the fascia, on the tensor fascia femoris 0 Quill and den for skin. Postoperative x-ray revealed acceptable position of the construct. It should be noted that the nursing assistant accounting manager, Yanna Vila and LINDA Rice were necessary to the completion of surgical procedure. This having been accomplished, compression dressing was applied and leg lengths were essentially equal and there were no complications postoperatively. Dusty Steiner MD
== END 2017-09-12 15:08 | DRG 470 ==
LOC: H.OPSURG 06:42 → H.MEDSURG1 15:33
PROVIDERS: ADMIT Internal Medicine; ATTEND Internal Medicine
PROC: 0SRB0JZ Replacement of Left Hip Joint with Synthetic Substitute, Open Approach (ICD-10-PCS; principal; 2017-09-12)
PROC: 0SBB0ZZ Excision of Left Hip Joint, Open Approach (ICD-10-PCS; 2017-09-12)
DX: M16.12 Unilateral primary osteoarthritis, left hip (principal); Z68.41 Body mass index [BMI] 40.0-44.9, adult; E66.01 Morbid (severe) obesity due to excess calories; H40.9 Unspecified glaucoma; M65.9 Synovitis and tenosynovitis, unspecified; Z82.0 Family history of epilepsy and other diseases of the nervous system; Z82.49 Family history of ischemic heart disease and other diseases of the circulatory system; Z87.891 Personal history of nicotine dependence; Z96.641 Presence of right artificial hip joint

== ENCOUNTER 2017-09-12 15:21 | Inpatient (IN) | payer MEDICARE ==
[2017-09-12 15:36] VITALS: BMI 39.3
[2017-09-12] MEDS: Oxycodone/Acetaminophen 5/325 mg Tab PO PRN (19:09)
[2017-09-12 19:27] LABS: SQUAMOUS EPITHIAL 3 /hpf (0-5); URINE BILIRUBIN NEGATIVE (NEGATIVE); URINE BLOOD SMALL (NEGATIVE); URINE CLARITY CLEAR (Clear); URINE COLOR YELLOW (YELLOW); URINE GLUCOSE (UA) NEG (Normal); URINE LEUKOCYTE ESTERASE NEG Leu/uL (Negative); URINE PROTEIN NEGATIVE (NEGATIVE)
[2017-09-12] MEDS: Enoxaparin 40 mg Syringe SC SCH (19:57)
[2017-09-12] MEDS: Dorzolamide 2% Ophth Soln OU SCH (20:18)
[2017-09-12] MEDS: Latanoprost 0.005% Opht SOUTION OU SCH (22:28)
[2017-09-12 23:41] VITALS: RESP 20
[2017-09-13] MEDS: Oxycodone/Acetaminophen 5/325 mg Tab PO PRN ×5 (01:26→22:17)
[2017-09-13] MEDS: Dorzolamide 2% Ophth Soln OU SCH ×2 (08:23→16:34)
[2017-09-13] MEDS: Magnesium Hydroxide Susp 30 ml UD PO PRN (09:52)
[2017-09-13] MEDS: Enoxaparin 40 mg Syringe SC SCH (16:33)
--- NOTE | 2017-09-13 18:05 | CP.PCM.HP ---
History of Present Illness - History of Present Illness History of Present Illness: 61 yo female with history of OA, Lumbar Radiculopathy and Glaucoma had left THR on 09/10/2017 after failing conservative management and PT. She did well post op and was transferred to TCU for continuation of her PT/OT. Present on Admission - Present on Admission Any Indicators Present on Admission: No History of DVT/PE: No History of Uncontrolled Diabetes: No Urinary Catheter: No Decubitus Ulcer Present: No Review of Systems - Review of Systems All systems: reviewed and no additional remarkable complaints except (aside from those mentioned above, 12 point system review were negative by me) Past Patient History - Infectious Disease Hx of Infectious Diseases: None - Tetanus Immunizations Tetanus Immunization: Unknown - Past Medical History & Family History Past Medical History?: Yes - Past Social History Smoking Status: Current Some Days Smoker Alcohol: None Drugs: Denies - CARDIAC Hx Hypertension: Yes - PULMONARY Hx Respiratory Disorders: No - NEUROLOGICAL Hx Neurological Disorder: No - HEENT Hx HEENT Problems: Yes Hx Cataracts: Yes Hx Glaucoma: Yes (tubes placed) - RENAL Hx Chronic Kidney Disease: No - ENDOCRINE/METABOLIC Hx Endocrine Disorders: No - HEMATOLOGICAL/ONCOLOGICAL Hx Blood Disorders: No Hx AIDS: No Hx Human Immunodeficiency Virus (HIV): No - INTEGUMENTARY Hx Dermatological Problems: No - MUSCULOSKELETAL/RHEUMATOLOGICAL Hx Arthritis: Yes Hx Falls: No - GASTROINTESTINAL Hx Gastrointestinal Disorders: No - GENITOURINARY/GYNECOLOGICAL Hx Genitourinary Disorders: No - PSYCHIATRIC Hx Psychophysiologic Disorder: No Hx Substance Use: No - SURGICAL HISTORY Hx Surgeries: Yes Hx Orthopedic Surgery: Yes (right THR) Hx Tubal Ligation: Yes - ANESTHESIA Hx Anesthesia: Yes Hx Anesthesia Reactions: No Hx Malignant Hyperthermia: No Meds Allergies/Adverse Reactions: Allergies Allergy/AdvReac Type Severity Reaction Status Date / Time erythromycin base Allergy RASH Verified 09/12/17 15:30 erth Allergy Mild RASH Uncoded 09/12/17 15:30 Physical Exam - Constitutional Appears: No Acute Distress - Head Exam Head Exam: ATRAUMATIC - Eye Exam Eye Exam: absent: Scleral icterus - ENT Exam ENT Exam: Mucous Membranes Moist - Neck Exam Neck exam: Negative for: Meningismus - Respiratory Exam Respiratory Exam: absent: Rales, Rhonchi, Wheezes, Respiratory Distress - Cardiovascular Exam Cardiovascular Exam: REGULAR RHYTHM, +S1, +S2 - GI/Abdominal Exam GI & Abdominal Exam: Soft. absent: Tenderness - Rectal Exam Rectal Exam: Deferred - Extremities Exam Extremities exam: Negative for: full ROM (limited ROM on left hip) - Back Exam Back exam: absent: tenderness - Neurological Exam Neurological exam: Alert, Oriented x3 - Psychiatric Exam Psychiatric exam: Normal Affect - Skin Skin Exam: Dry, Intact Results - Vital Signs Recent Vital Signs: Last Vital Signs Temp 99.9 F H 09/13/17 16:12 Pulse 91 H 09/13/17 16:12 Resp 20 09/13/17 16:12 BP 120/63 09/13/17 16:12 Pulse Ox 99 09/13/17 16:12 - Labs Labs: Laboratory Results - last 24 hr 09/12/17 18:55 Urine Color Yellow Urine Clarity Clear Urine pH 7.0 Ur Specific [place] 1.009 Urine Protein Negative Urine Glucose (UA) Neg Urine Ketones Negative Urine Blood Small Urine Nitrate Negative Urine Bilirubin Negative Urine Urobilinogen 2.0 H Ur Leukocyte Esterase Neg Urine RBC (Auto) 2 Urine Microscopic WBC 2 Ur Squamous Epith Cells 3 Assessment & Plan - Assessment and Plan (Free Text) Assessment: 61 yo female with history of OA, Lumbar Radiculopathy and Glaucoma had left THR on 09/10/2017 after failing conservative management and PT. She did well post op and was transferred to TCU for continuation of her PT/OT. (1) Primary osteoarthritis of left hip post op day # 3 pain well controlled physiatry consult with Dr Goncalves continue PT/OT (2) Glaucoma continue Timolol and Lanataprost
[2017-09-13] MEDS: Latanoprost 0.005% Opht SOUTION OU SCH (22:20)
[2017-09-13] MEDS ORDERED: Povidone Iodine Topical 10% Sol ONE (23:34)
[2017-09-14] MEDS: Oxycodone/Acetaminophen 5/325 mg Tab PO PRN ×4 (02:10→21:45)
[2017-09-14] MEDS: Dorzolamide 2% Ophth Soln OU SCH ×2 (08:39→16:44)
--- NOTE | 2017-09-14 12:42 | CP.PCM.PN ---
Subjective - Date & Time of Evaluation Date of Evaluation: 09/14/17 Time of Evaluation: 10:00 - Subjective Subjective: Patient seen and examined OOB to chair comfortable. Pain is well controlled. Tolerating PT and ambulating with walker with minimal difficulty. Nurse reports fever during overnight hours. Objective - Vital Signs/Intake and Output Vital Signs (last 24 hours): Temp Pulse Resp BP Pulse Ox 98.6 F 81 20 121/74 98 09/14/17 08:09 09/14/17 08:09 09/14/17 08:09 09/14/17 08:09 09/14/17 08:09 - Medications Medications: Current Medications Acetaminophen (Tylenol 325mg Tab) 650 mg PO Q4 PRN PRN Reason: Fever 101 degrees fahrenheit Last Admin: 09/13/17 22:18 Dose: 650 mg Docusate Sodium (Colace) 100 mg PO BID [facility] Last Admin: 09/14/17 08:26 Dose: 100 mg Dorzolamide HCl (Trusopt) 1 drop OU BID [facility] Last Admin: 09/14/17 08:39 Dose: 1 u Enoxaparin Sodium (Lovenox) 40 mg SC Q24H [facility] PRN Reason: Protocol Last Admin: 09/13/17 16:33 Dose: 40 mg Latanoprost (Xalatan Opht) 1 drop OU HS [facility] Last Admin: 09/13/17 22:20 Dose: 1 drop Magnesium Hydroxide (Milk Of Magnesia) 30 ml PO DAILY PRN PRN Reason: Constipation Last Admin: 09/13/17 09:52 Dose: 30 ml Oxycodone/Acetaminophen (Percocet 5/325 Mg Tab) 1 tab PO Q4 PRN PRN Reason: Pain, moderate (4-7) Stop: 09/15/17 16:50 Last Admin: 09/14/17 08:27 Dose: 1 tab Timolol Maleate (Timoptic 0.5% Ophth Soln) 1 drop OU BID [facility] Last Admin: 09/14/17 08:27 Dose: 1 u - Extremities Exam Additional comments: L hip: Wet to dry betadine dressings c/d/i, dressings removed revealing wound c/ d/i with den, no expressible drainage mild to mod hip swelling sensation intact SP/DP/TN motor intact EHL/FHL/TA/G pedal pulses intact compartments soft/NT b/l Assessment and Plan (1) Primary osteoarthritis of left hip Assessment & Plan: POD #4 s/p L AMINA doing well -pain control -DVT ppx -ID consult, Dr. Tong for overnight fevers -PT/OT -Continue wet to dry betadine dressing change, will transition to dry dressings if no drainage -above d/w Dr. Steiner in agreement Status: Chronic
[2017-09-14] MEDS: Enoxaparin 40 mg Syringe SC SCH (16:43)
--- NOTE | 2017-09-14 17:44 | RAD ---
PROCEDURE: CHEST RADIOGRAPH, 1 VIEW HISTORY: Cough, upper respiratory infection. COMPARISON: None available. FINDINGS: LUNGS: Clear. PLEURA: No pneumothorax or pleural fluid seen. CARDIOVASCULAR: Normal. OSSEOUS STRUCTURES: No significant abnormalities. VISUALIZED UPPER ABDOMEN: Normal. OTHER FINDINGS: None. IMPRESSION: No active disease.
[2017-09-14] MEDS: Latanoprost 0.005% Opht SOUTION OU SCH (21:46)
--- NOTE | 2017-09-14 22:33 | CON ---
INFECTIOUS DISEASE CONSULTATION DATE: LOCATION: The patient is presently in TCU. HISTORY OF PRESENT ILLNESS: She is a 61-year-old female with a history of osteoarthritis, lumbar radiculopathy and glaucoma and also a prior history of a right total hip replacement. The patient had a left total hip replacement on 09/10/2017 after failing a conservative management and physiotherapy. She is a 61-year-old female who is obese and complaining of some chills that she states are behind her neck along c sweats She did have a fever of 102. She is presently in TCU where she is doing well with her physiotherapy. PHYSICAL EXAMINATION GENERAL: She is alert, cooperative and oriented to time and place. HEENT: Within normal limits. NECK: Supple. She has some right cervical adenopathy. LUNGS: Some decreased breath sounds at the right base and some scattered rhonchi. HEART: Regular sinus rhythm. ABDOMEN: Soft. Positive bowel sounds. Left wound incision site, there is no drainage and appears to be within normal limits. EXTREMITIES: She has trace 1 edema on both lower extremities. LABORATORY DATA: Her white count is 13.2. Creatinine is within normal limits as well as GFR. At present time, she is having postoperative fever. There is no obvious etiology for the fever, although she does have mild leukocytosis. I have ordered repeat cultures, CBC and CMP. We will await prior to starting on any antibiotic therapy until at least tomorrow. Gregg Bangura MD MTDD
[2017-09-15] MEDS: Oxycodone/Acetaminophen 5/325 mg Tab PO PRN ×3 (04:52→21:25)
[2017-09-15 06:17] LABS: BASO # 0.1 K/uL (0.0-0.2); BASO % 1.1 % (0.0-2.0); EOS # 0.2 K/uL (0.0-0.7); EOS % 2.1 % (0.0-4.0); HEMOGLOBIN 9.6 g/dL (12.0-16.0); LYMPH # 2.3 K/uL (1.0-4.3); LYMPH % 24.2 % (20.0-40.0); MEAN CELL VOLUME 81.7 fl (81.0-99.0); MEAN CORPUSCULAR HEMOGLOBIN 28.3 pg (27.0-31.0); MEAN CORPUSCULAR HGB CONC 34.7 g/dL (33.0-37.0); MEAN PLATELET VOLUME 8.2 fl (7.2-11.7); MONO # 0.7 K/uL (0.0-0.8); MONO % 7.3 % (0.0-10.0); NEUT # 6.3 K/uL (1.8-7.0); NEUT % 65.3 % (50.0-75.0); NRBC % 0.1 % (0.0-0.0); RBC 3.38 Mil/uL (3.80-5.20); WHITE BLOOD COUNT 9.7 K/uL (4.8-10.8)
[2017-09-15 06:34] LABS: ALB/GLOB RATIO 0.9 (1.0-2.1); ALBUMIN 3.1 g/dL (3.5-5.0); ALT/SGPT 54 U/L (9-52); AST/SGOT 26 U/L (14-36); BLOOD UREA NITROGEN 8 mg/dl (7-17); CALCIUM 9.1 mg/dL (8.4-10.2); GFR AFRICAN-AMERICAN > 60; GFR NON-AFRICAN AMERICAN > 60
[2017-09-15] MEDS: Dorzolamide 2% Ophth Soln OU SCH ×2 (08:12→16:48)
--- NOTE | 2017-09-15 08:24 | CP.PCM.CON ---
History of Present Illness - History of Present Illness History of Present Illness: 61 year old female admitted to [facility] with diagnosis of left total hip replacement withother diagnosis of OA, lumbar radiculopathy and glaucoma Review of Systems - Musculoskeletal Musculoskeletal: Abnormal Gait, Limited Range of Motion, Muscle Weakness Past Patient History - Infectious Disease Hx of Infectious Diseases: None - Tetanus Immunizations Tetanus Immunization: Unknown - Past Medical History & Family History Past Medical History?: Yes - Past Social History Smoking Status: Current Some Days Smoker Alcohol: None Drugs: Denies - CARDIAC Hx Hypertension: Yes - PULMONARY Hx Respiratory Disorders: No - NEUROLOGICAL Hx Neurological Disorder: No - HEENT Hx HEENT Problems: Yes Hx Cataracts: Yes Hx Glaucoma: Yes (tubes placed) - RENAL Hx Chronic Kidney Disease: No - ENDOCRINE/METABOLIC Hx Endocrine Disorders: No - HEMATOLOGICAL/ONCOLOGICAL Hx Blood Disorders: No Hx AIDS: No Hx Human Immunodeficiency Virus (HIV): No - INTEGUMENTARY Hx Dermatological Problems: No - MUSCULOSKELETAL/RHEUMATOLOGICAL Hx Arthritis: Yes - GASTROINTESTINAL Hx Gastrointestinal Disorders: No - GENITOURINARY/GYNECOLOGICAL Hx Genitourinary Disorders: No - PSYCHIATRIC Hx Psychophysiologic Disorder: No Hx Substance Use: No - SURGICAL HISTORY Hx Surgeries: Yes Hx Orthopedic Surgery: Yes (right THR) Hx Tubal Ligation: Yes - ANESTHESIA Hx Anesthesia: Yes Hx Anesthesia Reactions: No Hx Malignant Hyperthermia: No Meds Allergies/Adverse Reactions: Allergies Allergy/AdvReac Type Severity Reaction Status Date / Time erythromycin base Allergy RASH Verified 09/12/17 15:30 erth Allergy Mild RASH Uncoded 09/12/17 15:30 - Medications Medications: Current Medications Acetaminophen (Tylenol 325mg Tab) 650 mg PO Q4 PRN PRN Reason: Fever 101 degrees fahrenheit Last Admin: 09/15/17 04:53 Dose: 650 mg Docusate Sodium (Colace) 100 mg PO BID [facility] Last Admin: 09/15/17 08:11 Dose: 100 mg Dorzolamide HCl (Trusopt) 1 drop OU BID [facility] Last Admin: 09/15/17 08:12 Dose: 1 u Enoxaparin Sodium (Lovenox) 40 mg SC Q24H [facility] PRN Reason: Protocol Last Admin: 09/14/17 16:43 Dose: 40 mg Latanoprost (Xalatan Opht) 1 drop OU HS [facility] Last Admin: 09/14/17 21:46 Dose: 1 drop Magnesium Hydroxide (Milk Of Magnesia) 30 ml PO DAILY PRN PRN Reason: Constipation Last Admin: 09/13/17 09:52 Dose: 30 ml Oxycodone/Acetaminophen (Percocet 5/325 Mg Tab) 1 tab PO Q4 PRN PRN Reason: Pain, moderate (4-7) Stop: 09/15/17 16:50 Last Admin: 09/15/17 04:52 Dose: 1 tab Timolol Maleate (Timoptic 0.5% Ophth Soln) 1 drop OU BID [facility] Last Admin: 09/15/17 08:12 Dose: 1 u Physical Exam - Eye Exam Eye Exam: EOMI, Normal appearance Pupil Exam: NORMAL ACCOMODATION, PERRL - ENT Exam ENT Exam: Mucous Membranes Moist, Normal Exam - Neck Exam Neck exam: Positive for: Normal Inspection - Respiratory Exam Respiratory Exam: Clear to Auscultation Bilateral, NORMAL BREATHING PATTERN - Cardiovascular Exam Cardiovascular Exam: REGULAR RHYTHM - GI/Abdominal Exam GI & Abdominal Exam: Normal Bowel Sounds - Rectal Exam Rectal Exam: NORMAL INSPECTION - Exam External exam: NORMAL EXTERNAL EXAM - Extremities Exam Extremities exam: Positive for: normal inspection - Back Exam Back exam: NORMAL INSPECTION Additional comments: left leg weakness - Neurological Exam Neurological exam: Alert, CN II-XII Intact, Reflexes Normal - Psychiatric Exam Psychiatric exam: Normal Affect - Skin Skin Exam: Dry, Normal Color Results - Vital Signs Recent Vital Signs: Last Vital Signs Temp 97.7 F 09/15/17 08:03 Pulse 75 09/15/17 08:03 Resp 20 09/15/17 08:03 BP 98/73 L 09/15/17 08:03 Pulse Ox 98 09/15/17 08:03 - Labs Result Diagrams: 09/15/17 05:15 09/15/17 05:15 Labs: Laboratory Results - last 24 hr 09/15/17 09/15/17 05:15 05:15 WBC 9.7 RBC 3.38 L Hgb 9.6 L D Hct 27.6 L MCV 81.7 MCH 28.3 MCHC 34.7 RDW 15.0 H Plt Count 265 MPV 8.2 Neut % (Auto) 65.3 Lymph % (Auto) 24.2 [place] % (Auto) 7.3 Eos % (Auto) 2.1 Baso % (Auto) 1.1 Neut # (Auto) 6.3 Lymph # (Auto) 2.3 [place] # (Auto) 0.7 Eos # (Auto) 0.2 Baso # (Auto) 0.1 Sodium 144 Potassium 3.3 L Chloride 104 Carbon Dioxide 24 Anion Gap 19 BUN 8 Creatinine 0.6 L Est GFR ( Amer) > 60 Est GFR (Non-Af Amer) > 60 Random Glucose 113 H Calcium 9.1 Total Bilirubin 0.6 AST 26 ALT 54 H Alkaline Phosphatase 74 Total Protein 6.6 Albumin 3.1 L Globulin 3.4 Albumin/Globulin Ratio 0.9 L Assessment & Plan (1) DVT prophylaxis Status: Acute (2) Glaucoma Status: Chronic (3) Primary osteoarthritis of left hip Assessment and Plan: left hip replacement plan for physical, occupational,for range of motion, strenghtneing transfers and gait training hip precautions, monitor, skin and vitals Status: Chronic
--- NOTE | 2017-09-15 13:38 | CP.PCM.PN ---
Subjective - Date & Time of Evaluation Date of Evaluation: 09/15/17 Time of Evaluation: 13:36 - Subjective Subjective: doing well no complaints participating with PT well HD STABLE NAD Objective - Vital Signs/Intake and Output Vital Signs (last 24 hours): Temp Pulse Resp BP Pulse Ox 98 F 78 20 102/69 98 09/15/17 09:00 09/15/17 09:00 09/15/17 09:00 09/15/17 09:00 09/15/17 09:00 - Medications Medications: Current Medications Acetaminophen (Tylenol 325mg Tab) 650 mg PO Q4 PRN PRN Reason: Fever 101 degrees fahrenheit Last Admin: 09/15/17 04:53 Dose: 650 mg Docusate Sodium (Colace) 100 mg PO BID [facility] Last Admin: 09/15/17 08:11 Dose: 100 mg Dorzolamide HCl (Trusopt) 1 drop OU BID [facility] Last Admin: 09/15/17 08:12 Dose: 1 u Enoxaparin Sodium (Lovenox) 40 mg SC Q24H [facility] PRN Reason: Protocol Last Admin: 09/14/17 16:43 Dose: 40 mg Latanoprost (Xalatan Opht) 1 drop OU HS [facility] Last Admin: 09/14/17 21:46 Dose: 1 drop Magnesium Hydroxide (Milk Of Magnesia) 30 ml PO DAILY PRN PRN Reason: Constipation Last Admin: 09/13/17 09:52 Dose: 30 ml Oxycodone/Acetaminophen (Percocet 5/325 Mg Tab) 1 tab PO Q4 PRN PRN Reason: Pain, moderate (4-7) Stop: 09/20/17 16:50 Last Admin: 09/15/17 12:06 Dose: 1 tab Timolol Maleate (Timoptic 0.5% Ophth Soln) 1 drop OU BID [facility] Last Admin: 09/15/17 08:12 Dose: 1 u - Labs Labs: 09/15/17 05:15 09/15/17 05:15 - Constitutional Appears: Non-toxic, No Acute Distress - Head Exam Head Exam: ATRAUMATIC, NORMOCEPHALIC - ENT Exam ENT Exam: Mucous Membranes Moist, Normal Exam - Neck Exam Neck Exam: Full ROM, Normal Inspection. absent: Lymphadenopathy - Respiratory Exam Respiratory Exam: Clear to Ausculation Bilateral, NORMAL BREATHING PATTERN - Cardiovascular Exam Cardiovascular Exam: REGULAR RHYTHM, +S1, +S2. absent: Murmur - GI/Abdominal Exam GI & Abdominal Exam: Soft, Normal Bowel Sounds. absent: Tenderness - Extremities Exam Extremities Exam: Normal Capillary Refill. absent: Calf Tenderness, Pedal Edema - Back Exam Back Exam: absent: CVA tenderness (L), CVA tenderness (R) - Neurological Exam Neurological Exam: Alert, Awake, Oriented x3 - Psychiatric Exam Psychiatric exam: Normal Affect, Normal Mood - Skin Skin Exam: Dry, Intact, Normal Color, Warm Assessment and Plan - Assessment and Plan (Free Text) Plan: 61 yo female with history of OA, Lumbar Radiculopathy and Glaucoma had left THR on 09/10/2017 after failing conservative management and PT. She did well post op and was transferred to TCU for continuation of her PT/OT. (1) Primary osteoarthritis of left hip post op day pain well controlled physiatry consult with Dr Goncalves continue PT/OT (2) Glaucoma continue Timolol and Lanataprost
[2017-09-15] MEDS: Enoxaparin 40 mg Syringe SC SCH (16:48)
[2017-09-15] MEDS: Latanoprost 0.005% Opht SOUTION OU SCH (21:21)
[2017-09-16] MEDS: Oxycodone/Acetaminophen 5/325 mg Tab PO PRN ×4 (01:16→21:24)
[2017-09-16] MEDS: Dorzolamide 2% Ophth Soln OU SCH ×2 (08:30→17:10)
--- NOTE | 2017-09-16 10:51 | CP.PCM.PN ---
Subjective - Date & Time of Evaluation Date of Evaluation: 09/16/17 Time of Evaluation: 10:50 - Subjective Subjective: Patient states she is doing a little better everyday. She has not had recent BM. Drank prune juice Objective - Vital Signs/Intake and Output Vital Signs (last 24 hours): Temp Pulse Resp BP Pulse Ox 98.8 F 73 20 123/70 100 09/16/17 08:08 09/16/17 08:08 09/16/17 08:08 09/16/17 08:08 09/16/17 08:08 - Medications Medications: Current Medications Acetaminophen (Tylenol 325mg Tab) 650 mg PO Q4 PRN PRN Reason: Fever 101 degrees fahrenheit Last Admin: 09/15/17 04:53 Dose: 650 mg Docusate Sodium (Colace) 100 mg PO BID [facility] Last Admin: 09/16/17 08:29 Dose: 100 mg Dorzolamide HCl (Trusopt) 1 drop OU BID [facility] Last Admin: 09/16/17 08:30 Dose: 1 u Enoxaparin Sodium (Lovenox) 40 mg SC Q24H [facility] PRN Reason: Protocol Last Admin: 09/15/17 16:48 Dose: 40 mg Latanoprost (Xalatan Opht) 1 drop OU HS [facility] Last Admin: 09/15/17 21:21 Dose: 1 drop Magnesium Hydroxide (Milk Of Magnesia) 30 ml PO DAILY PRN PRN Reason: Constipation Last Admin: 09/13/17 09:52 Dose: 30 ml Oxycodone/Acetaminophen (Percocet 5/325 Mg Tab) 1 tab PO Q4 PRN PRN Reason: Pain, moderate (4-7) Stop: 09/20/17 16:50 Last Admin: 09/16/17 08:36 Dose: 1 tab Timolol Maleate (Timoptic 0.5% Ophth Soln) 1 drop OU BID [facility] Last Admin: 09/16/17 08:30 Dose: 1 u - Labs Labs: 09/15/17 05:15 09/15/17 05:15 - Extremities Exam Additional comments: L hip: Wet to dry betadine dressings c/d/i, dressings removed revealing wound c/ d/i with den, dry, no erythema calves soft NT neg homans mild hip swelling sensation intact SP/DP/TN motor intact EHL/FHL/TA/G pedal pulses intact compartments soft/NT b/l Assessment and Plan (1) Primary osteoarthritis of left hip Assessment & Plan: POD# 6 s/p left THR -pain control VTE proph -ID consult, Dr. Tong for overnight fevers, afeb x 24h -PT/OT -daily dressing change -above d/w Dr. Setiner in agreement Status: Chronic
[2017-09-16] MEDS ORDERED: Bisacodyl 5mg EC Tab PO ONE (11:05)
--- NOTE | 2017-09-16 13:55 | CP.PCM.PN ---
Subjective - Date & Time of Evaluation Date of Evaluation: 09/16/17 Time of Evaluation: 12:00 - Subjective Subjective: no acute left hip pain Objective - Vital Signs/Intake and Output Vital Signs (last 24 hours): Temp Pulse Resp BP Pulse Ox 98.8 F 73 20 123/70 100 09/16/17 08:08 09/16/17 08:08 09/16/17 08:08 09/16/17 08:08 09/16/17 08:08 - Medications Medications: Current Medications Acetaminophen (Tylenol 325mg Tab) 650 mg PO Q4 PRN PRN Reason: Fever 101 degrees fahrenheit Last Admin: 09/15/17 04:53 Dose: 650 mg Docusate Sodium (Colace) 100 mg PO BID [facility] Last Admin: 09/16/17 08:29 Dose: 100 mg Dorzolamide HCl (Trusopt) 1 drop OU BID [facility] Last Admin: 09/16/17 08:30 Dose: 1 u Enoxaparin Sodium (Lovenox) 40 mg SC Q24H [facility] PRN Reason: Protocol Last Admin: 09/15/17 16:48 Dose: 40 mg Latanoprost (Xalatan Opht) 1 drop OU HS [facility] Last Admin: 09/15/17 21:21 Dose: 1 drop Magnesium Hydroxide (Milk Of Magnesia) 30 ml PO DAILY PRN PRN Reason: Constipation Last Admin: 09/13/17 09:52 Dose: 30 ml Oxycodone/Acetaminophen (Percocet 5/325 Mg Tab) 1 tab PO Q4 PRN PRN Reason: Pain, moderate (4-7) Stop: 09/20/17 16:50 Last Admin: 09/16/17 08:36 Dose: 1 tab Timolol Maleate (Timoptic 0.5% Ophth Soln) 1 drop OU BID [facility] Last Admin: 09/16/17 08:30 Dose: 1 u - Labs Labs: 09/15/17 05:15 09/15/17 05:15 - Head Exam Head Exam: ATRAUMATIC, NORMAL INSPECTION, NORMOCEPHALIC - Eye Exam Eye Exam: EOMI, Normal appearance, PERRL Pupil Exam: NORMAL ACCOMODATION - ENT Exam ENT Exam: Mucous Membranes Moist, Normal Exam - Neck Exam Neck Exam: Normal Inspection - Respiratory Exam Respiratory Exam: Clear to Ausculation Bilateral, NORMAL BREATHING PATTERN - Cardiovascular Exam Cardiovascular Exam: REGULAR RHYTHM - GI/Abdominal Exam GI & Abdominal Exam: Soft, Normal Bowel Sounds - Rectal Exam Rectal Exam: NORMAL INSPECTION - Exam External exam: NORMAL EXTERNAL EXAM - Extremities Exam Extremities Exam: Full ROM, Normal Capillary Refill - Back Exam Back Exam: Full ROM, NORMAL INSPECTION - Neurological Exam Neurological Exam: Alert, Awake, CN II-XII Intact Neuro motor strength exam: Left Upper Extremity: 4, Right Upper Extremity: 4, Left Lower Extremity: 4, Right Lower Extremity: 3 - Psychiatric Exam Psychiatric exam: Normal Affect, Normal Mood Assessment and Plan (1) DVT prophylaxis Status: Acute (2) Glaucoma Status: Chronic (3) Primary osteoarthritis of left hip Assessment & Plan: left hip surgery, angel has a dreesing no claf tenderness physical, occupational therapy program Status: Chronic
[2017-09-16] MEDS: Enoxaparin 40 mg Syringe SC SCH (17:09)
--- NOTE | 2017-09-16 17:42 | CP.PCM.PN ---
Subjective - Date & Time of Evaluation Date of Evaluation: 09/16/17 Time of Evaluation: 17:40 - Subjective Subjective: I D NOTE AFEBRILE X 48HRS WBC:9.7,POLS:65.3 CULTURES ARE NEGATIVE WOULD NOT START ANY IV ANTIBIOTICS AT THIS TIME Objective - Vital Signs/Intake and Output Vital Signs (last 24 hours): Temp Pulse Resp BP Pulse Ox 98.1 F 76 20 121/59 L 100 09/16/17 16:45 09/16/17 16:45 09/16/17 16:45 09/16/17 16:45 09/16/17 16:45 - Medications Medications: Current Medications Acetaminophen (Tylenol 325mg Tab) 650 mg PO Q4 PRN PRN Reason: Fever 101 degrees fahrenheit Last Admin: 09/15/17 04:53 Dose: 650 mg Docusate Sodium (Colace) 100 mg PO BID [facility] Last Admin: 09/16/17 17:11 Dose: 100 mg Dorzolamide HCl (Trusopt) 1 drop OU BID [facility] Last Admin: 09/16/17 17:10 Dose: 1 u Enoxaparin Sodium (Lovenox) 40 mg SC Q24H [facility] PRN Reason: Protocol Last Admin: 09/16/17 17:09 Dose: 40 mg Latanoprost (Xalatan Opht) 1 drop OU HS [facility] Last Admin: 09/15/17 21:21 Dose: 1 drop Magnesium Hydroxide (Milk Of Magnesia) 30 ml PO DAILY PRN PRN Reason: Constipation Last Admin: 09/13/17 09:52 Dose: 30 ml Oxycodone/Acetaminophen (Percocet 5/325 Mg Tab) 1 tab PO Q4 PRN PRN Reason: Pain, moderate (4-7) Stop: 09/20/17 16:50 Last Admin: 09/16/17 17:17 Dose: 1 tab Timolol Maleate (Timoptic 0.5% Ophth Soln) 1 drop OU BID [facility] Last Admin: 09/16/17 17:11 Dose: 1 u - Labs Labs: 09/15/17 05:15 09/15/17 05:15
[2017-09-16] MEDS: Latanoprost 0.005% Opht SOUTION OU SCH (21:19)
[2017-09-17] MEDS: Dorzolamide 2% Ophth Soln OU SCH ×2 (08:17→16:40)
[2017-09-17] MEDS: Oxycodone/Acetaminophen 5/325 mg Tab PO PRN ×2 (08:22→21:12)
--- NOTE | 2017-09-17 12:37 | CP.PCM.PN ---
Subjective - Date & Time of Evaluation Date of Evaluation: 09/17/17 Time of Evaluation: 12:37 - Subjective Subjective: Patient says she is a little sore today, but progressing well. Objective - Vital Signs/Intake and Output Vital Signs (last 24 hours): Temp Pulse Resp BP Pulse Ox 98.1 F 80 20 120/76 100 09/17/17 08:40 09/17/17 08:40 09/17/17 08:40 09/17/17 08:40 09/17/17 08:40 - Medications Medications: Current Medications Acetaminophen (Tylenol 325mg Tab) 650 mg PO Q4 PRN PRN Reason: Fever 101 degrees fahrenheit Last Admin: 09/15/17 04:53 Dose: 650 mg Docusate Sodium (Colace) 100 mg PO BID [facility] Last Admin: 09/17/17 08:17 Dose: 100 mg Dorzolamide HCl (Trusopt) 1 drop OU BID [facility] Last Admin: 09/17/17 08:17 Dose: 1 u Enoxaparin Sodium (Lovenox) 40 mg SC Q24H [facility] PRN Reason: Protocol Last Admin: 09/16/17 17:09 Dose: 40 mg Latanoprost (Xalatan Opht) 1 drop OU HS [facility] Last Admin: 09/16/17 21:19 Dose: 1 drop Magnesium Hydroxide (Milk Of Magnesia) 30 ml PO DAILY PRN PRN Reason: Constipation Last Admin: 09/13/17 09:52 Dose: 30 ml Oxycodone/Acetaminophen (Percocet 5/325 Mg Tab) 1 tab PO Q4 PRN PRN Reason: Pain, moderate (4-7) Stop: 09/20/17 16:50 Last Admin: 09/17/17 08:22 Dose: 1 tab Timolol Maleate (Timoptic 0.5% Ophth Soln) 1 drop OU BID [facility] Last Admin: 09/17/17 08:18 Dose: 1 u - Labs Labs: 09/15/17 05:15 09/15/17 05:15 - Extremities Exam Additional comments: L hip: dressings removed revealing wound c/d/i with den, dry, no erythema, op site applied calves soft NT neg homans mild hip swelling sensation intact SP/DP/TN motor intact EHL/FHL/TA/G pedal pulses intact compartments soft/NT b/l Assessment and Plan (1) Primary osteoarthritis of left hip Assessment & Plan: POD# 7 s/p left THR pain control VTE proph -ID consult, Dr. Tong for overnight fevers, afeb x 48h -PT/OT -above d/w Dr. Steiner in agreement -ortho stable Status: Chronic
[2017-09-17] MEDS: Enoxaparin 40 mg Syringe SC SCH (16:39)
--- NOTE | 2017-09-17 17:24 | CP.PCM.PN ---
Subjective - Date & Time of Evaluation Date of Evaluation: 09/17/17 Time of Evaluation: 14:15 - Subjective Subjective: Patient seen and examined. No complaint Objective - Vital Signs/Intake and Output Vital Signs (last 24 hours): Temp Pulse Resp BP Pulse Ox 97.9 F 85 20 126/71 100 09/17/17 16:52 09/17/17 16:52 09/17/17 16:52 09/17/17 16:52 09/17/17 16:52 - Medications Medications: Current Medications Acetaminophen (Tylenol 325mg Tab) 650 mg PO Q4 PRN PRN Reason: Fever 101 degrees fahrenheit Last Admin: 09/15/17 04:53 Dose: 650 mg Acetaminophen (Tylenol 325mg Tab) 650 mg PO Q6 PRN PRN Reason: Headache Last Admin: 09/17/17 13:35 Dose: 650 mg Docusate Sodium (Colace) 100 mg PO BID [facility] Last Admin: 09/17/17 16:40 Dose: 100 mg Dorzolamide HCl (Trusopt) 1 drop OU BID [facility] Last Admin: 09/17/17 16:40 Dose: 1 u Enoxaparin Sodium (Lovenox) 40 mg SC Q24H [facility] PRN Reason: Protocol Last Admin: 09/17/17 16:39 Dose: 40 mg Latanoprost (Xalatan Opht) 1 drop OU HS [facility] Last Admin: 09/16/17 21:19 Dose: 1 drop Magnesium Hydroxide (Milk Of Magnesia) 30 ml PO DAILY PRN PRN Reason: Constipation Last Admin: 09/13/17 09:52 Dose: 30 ml Oxycodone/Acetaminophen (Percocet 5/325 Mg Tab) 1 tab PO Q4 PRN PRN Reason: Pain, moderate (4-7) Stop: 09/20/17 16:50 Last Admin: 09/17/17 08:22 Dose: 1 tab Timolol Maleate (Timoptic 0.5% Ophth Soln) 1 drop OU BID [facility] Last Admin: 09/17/17 16:40 Dose: 1 u - Labs Labs: 09/15/17 05:15 09/15/17 05:15 - Constitutional Appears: No Acute Distress - Head Exam Head Exam: ATRAUMATIC - Eye Exam Eye Exam: absent: Scleral icterus - ENT Exam ENT Exam: Mucous Membranes Moist - Neck Exam Neck Exam: absent: Meningismus - Respiratory Exam Respiratory Exam: absent: Rales, Rhonchi, Wheezes, Respiratory Distress - Cardiovascular Exam Cardiovascular Exam: REGULAR RHYTHM, +S1, +S2 - GI/Abdominal Exam GI & Abdominal Exam: Soft. absent: Tenderness - Rectal Exam Rectal Exam: Deferred - Neurological Exam Neurological Exam: Alert, Oriented x3 - Psychiatric Exam Psychiatric exam: Normal Affect - Skin Skin Exam: Dry, Intact Assessment and Plan - Assessment and Plan (Free Text) Assessment: 61 yo female with history of OA, Lumbar Radiculopathy and Glaucoma had left THR on 09/10/2017 after failing conservative management and PT. She did well post op and was transferred to TCU for continuation of her PT/OT. (1) Primary osteoarthritis of left hip post op day # [address] Goncalves on physiatry consult continue PT/OT (2) Glaucoma continue Timolol and Lanataprost
[2017-09-17] MEDS: Latanoprost 0.005% Opht SOUTION OU SCH (21:09)
[2017-09-18] MEDS: Oxycodone/Acetaminophen 5/325 mg Tab PO PRN ×3 (08:24→22:00)
[2017-09-18] MEDS: Dorzolamide 2% Ophth Soln OU SCH ×2 (09:00→17:23)
--- NOTE | 2017-09-18 12:10 | CP.PCM.PN ---
Subjective - Date & Time of Evaluation Date of Evaluation: 09/18/17 Time of Evaluation: 10:30 - Subjective Subjective: no complaints of any hip pain Objective - Vital Signs/Intake and Output Vital Signs (last 24 hours): Temp Pulse Resp BP Pulse Ox 98.2 F 74 20 117/58 L 99 09/18/17 08:04 09/18/17 08:04 09/18/17 08:04 09/18/17 08:04 09/18/17 08:04 - Medications Medications: Current Medications Acetaminophen (Tylenol 325mg Tab) 650 mg PO Q4 PRN PRN Reason: Fever 101 degrees fahrenheit Last Admin: 09/15/17 04:53 Dose: 650 mg Acetaminophen (Tylenol 325mg Tab) 650 mg PO Q6 PRN PRN Reason: Headache Last Admin: 09/18/17 01:16 Dose: 650 mg Docusate Sodium (Colace) 100 mg PO BID [facility] Last Admin: 09/18/17 08:22 Dose: 100 mg Dorzolamide HCl (Trusopt) 1 drop OU BID [facility] Last Admin: 09/18/17 09:00 Dose: 1 u Enoxaparin Sodium (Lovenox) 40 mg SC Q24H [facility] PRN Reason: Protocol Last Admin: 09/17/17 16:39 Dose: 40 mg Latanoprost (Xalatan Opht) 1 drop OU HS [facility] Last Admin: 09/17/17 21:09 Dose: 1 drop Magnesium Hydroxide (Milk Of Magnesia) 30 ml PO DAILY PRN PRN Reason: Constipation Last Admin: 09/13/17 09:52 Dose: 30 ml Oxycodone/Acetaminophen (Percocet 5/325 Mg Tab) 1 tab PO Q4 PRN PRN Reason: Pain, moderate (4-7) Stop: 09/20/17 16:50 Last Admin: 09/18/17 08:24 Dose: 1 tab Timolol Maleate (Timoptic 0.5% Ophth Soln) 1 drop OU BID [facility] Last Admin: 09/18/17 08:22 Dose: 1 u - Labs Labs: 09/15/17 05:15 09/15/17 05:15 - Head Exam Head Exam: ATRAUMATIC, NORMAL INSPECTION, NORMOCEPHALIC - Eye Exam Eye Exam: EOMI, Normal appearance, PERRL Pupil Exam: NORMAL ACCOMODATION - ENT Exam ENT Exam: Mucous Membranes Moist, Normal Exam - Neck Exam Neck Exam: Full ROM, Normal Inspection - Respiratory Exam Respiratory Exam: NORMAL BREATHING PATTERN - Cardiovascular Exam Cardiovascular Exam: REGULAR RHYTHM - GI/Abdominal Exam GI & Abdominal Exam: Soft, Normal Bowel Sounds - Rectal Exam Rectal Exam: NORMAL INSPECTION - Exam External exam: NORMAL EXTERNAL EXAM - Extremities Exam Extremities Exam: Full ROM, Normal Capillary Refill, Normal Inspection - Back Exam Back Exam: NORMAL INSPECTION - Neurological Exam Neurological Exam: Alert, Awake Neuro motor strength exam: Left Upper Extremity: 4, Right Upper Extremity: 4, Left Lower Extremity: 3, Right Lower Extremity: 4 - Psychiatric Exam Psychiatric exam: Normal Affect, Normal Mood - Skin Skin Exam: Dry, Intact, Normal Color Assessment and Plan (1) DVT prophylaxis Status: Acute (2) Glaucoma Status: Chronic (3) Primary osteoarthritis of left hip Assessment & Plan: plan for physical, and occupational therapy discussed treatment with patient Status: Chronic
--- NOTE | 2017-09-18 12:31 | CP.PCM.PN ---
Subjective - Date & Time of Evaluation Date of Evaluation: 09/17/17 Time of Evaluation: 08:00 - Subjective Subjective: no acute complaints Objective - Vital Signs/Intake and Output Vital Signs (last 24 hours): Temp Pulse Resp BP Pulse Ox 98.2 F 74 20 117/58 L 99 09/18/17 08:04 09/18/17 08:04 09/18/17 08:04 09/18/17 08:04 09/18/17 08:04 - Medications Medications: Current Medications Acetaminophen (Tylenol 325mg Tab) 650 mg PO Q4 PRN PRN Reason: Fever 101 degrees fahrenheit Last Admin: 09/15/17 04:53 Dose: 650 mg Acetaminophen (Tylenol 325mg Tab) 650 mg PO Q6 PRN PRN Reason: Headache Last Admin: 09/18/17 01:16 Dose: 650 mg Docusate Sodium (Colace) 100 mg PO BID [facility] Last Admin: 09/18/17 08:22 Dose: 100 mg Dorzolamide HCl (Trusopt) 1 drop OU BID [facility] Last Admin: 09/18/17 09:00 Dose: 1 u Enoxaparin Sodium (Lovenox) 40 mg SC Q24H [facility] PRN Reason: Protocol Last Admin: 09/17/17 16:39 Dose: 40 mg Latanoprost (Xalatan Opht) 1 drop OU HS [facility] Last Admin: 09/17/17 21:09 Dose: 1 drop Magnesium Hydroxide (Milk Of Magnesia) 30 ml PO DAILY PRN PRN Reason: Constipation Last Admin: 09/13/17 09:52 Dose: 30 ml Oxycodone/Acetaminophen (Percocet 5/325 Mg Tab) 1 tab PO Q4 PRN PRN Reason: Pain, moderate (4-7) Stop: 09/20/17 16:50 Last Admin: 09/18/17 08:24 Dose: 1 tab Timolol Maleate (Timoptic 0.5% Ophth Soln) 1 drop OU [facility]ID [facility] Last Admin: 09/18/17 08:22 Dose: 1 u - Labs Labs: 09/15/17 05:15 09/15/17 05:15 - Head Exam Head Exam: ATRAUMATIC, NORMAL INSPECTION, NORMOCEPHALIC - Eye Exam Eye Exam: EOMI, Normal appearance, PERRL Pupil Exam: NORMAL ACCOMODATION - ENT Exam ENT Exam: Mucous Membranes Moist, Normal Exam - Neck Exam Neck Exam: Normal Inspection - Respiratory Exam Respiratory Exam: NORMAL BREATHING PATTERN - Cardiovascular Exam Cardiovascular Exam: REGULAR RHYTHM - GI/Abdominal Exam GI & Abdominal Exam: Soft - Rectal Exam Rectal Exam: NORMAL INSPECTION - Exam External exam: NORMAL EXTERNAL EXAM - Extremities Exam Extremities Exam: Full ROM, Normal Capillary Refill, Normal Inspection - Back Exam Back Exam: NORMAL INSPECTION - Neurological Exam Neurological Exam: Alert, Awake Neuro motor strength exam: Left Upper Extremity: 4, Right Upper Extremity: 4, Left Lower Extremity: 3, Right Lower Extremity: 4 - Psychiatric Exam Psychiatric exam: Normal Affect, Normal Mood - Skin Skin Exam: Dry, Intact Assessment and Plan (1) DVT prophylaxis Status: Acute (2) Glaucoma Status: Chronic (3) Primary osteoarthritis of left hip Assessment & Plan: range of motion, strenghtening transfers and gait training monitor hip incisional area Status: Chronic
[2017-09-18] MEDS: Magnesium Hydroxide Susp 30 ml UD PO PRN (16:36)
[2017-09-18] MEDS: Enoxaparin 40 mg Syringe SC SCH (16:40)
[2017-09-18] MEDS: Latanoprost 0.005% Opht SOUTION OU SCH (22:00)
[2017-09-19] MEDS: Oxycodone/Acetaminophen 5/325 mg Tab PO PRN ×2 (02:40→08:58)
[2017-09-19] MEDS: Dorzolamide 2% Ophth Soln OU SCH (08:57)
[2017-09-19 09:02] VITALS: BP 137/79; PULSE 80; TEMP 97.7; O2SAT 98
--- NOTE | 2017-09-19 12:22 | CP.PCM.DIS ---
Provider - Provider Date of Admission: 09/12/17 15:42 Attending physician: Marcia Gorman MD Primary care physician: NO FAMILY PROVIDER Time Spent in preparation of Discharge (in minutes): 30 Diagnosis - Discharge Diagnosis (1) DVT prophylaxis Status: Acute (2) Glaucoma Status: Chronic (3) Primary osteoarthritis of left hip Status: Chronic Hospital Course - Lab Results Lab Results: Micro Results 09/16/17 09:02 Blood Blood Culture - Preliminary NO GROWTH AFTER 3 DAYS 09/15/17 07:49 Blood Blood Culture - Preliminary NO GROWTH AFTER 4 DAYS 09/12/17 18:00 Blood-Venous Blood Culture - Final NO GROWTH AFTER 5 DAYS 09/12/17 18:00 Blood-Venous Gram Stain - Final TEST NOT PERFORMED 09/12/17 18:00 Blood-Venous Blood Culture - Final NO GROWTH AFTER 5 DAYS 09/12/17 18:00 Blood-Venous Gram Stain - Final TEST NOT PERFORMED 09/14/17 06:13 Urine,Clean Catch Urine Culture - Final No Growth (<1,000 CFU/ML) Most Recent Lab Values WBC 9.7 K/uL (4.8-10.8) 09/15/17 05:15 RBC 3.38 Mil/uL (3.80-5.20) L 09/15/17 05:15 Hgb 9.6 g/dL (12.0-16.0) L D 09/15/17 05:15 Hct 27.6 % (34.0-47.0) L 09/15/17 05:15 MCV 81.7 fl (81.0-99.0) 09/15/17 05:15 MCH 28.3 pg (27.0-31.0) 09/15/17 05:15 MCHC 34.7 g/dL (33.0-37.0) 09/15/17 05:15 RDW 15.0 % (11.5-14.5) H 09/15/17 05:15 Plt Count 265 K/uL (130-400) 09/15/17 05:15 MPV 8.2 fl (7.2-11.7) 09/15/17 05:15 Neut % (Auto) 65.3 % (50.0-75.0) 09/15/17 05:15 Lymph % (Auto) 24.2 % (20.0-40.0) 09/15/17 05:15 Ogle % (Auto) 7.3 % (0.0-10.0) 09/15/17 05:15 Eos % (Auto) 2.1 % (0.0-4.0) 09/15/17 05:15 Baso % (Auto) 1.1 % (0.0-2.0) 09/15/17 05:15 Neut # (Auto) 6.3 K/uL (1.8-7.0) 09/15/17 05:15 Lymph # (Auto) 2.3 K/uL (1.0-4.3) 09/15/17 05:15 Ogle # (Auto) 0.7 K/uL (0.0-0.8) 09/15/17 05:15 Eos # (Auto) 0.2 K/uL (0.0-0.7) 09/15/17 05:15 Baso # (Auto) 0.1 K/uL (0.0-0.2) 09/15/17 05:15 Sodium 144 mmol/l (132-148) 09/15/17 05:15 Potassium 3.3 MMOL/L (3.6-5.0) L 09/15/17 05:15 Chloride 104 mmol/L (98-107) 09/15/17 05:15 Carbon Dioxide 24 mmol/L (22-30) 09/15/17 05:15 Anion Gap 19 (10-20) 09/15/17 05:15 BUN 8 mg/dl (7-17) 09/15/17 05:15 Creatinine 0.6 mg/dl (0.7-1.2) L 09/15/17 05:15 Est GFR ( Amer) > 60 09/15/17 05:15 Est GFR (Non-Af Amer) > 60 09/15/17 05:15 Random Glucose 113 mg/dL (65-105) H 09/15/17 05:15 Calcium 9.1 mg/dL (8.4-10.2) 09/15/17 05:15 Total Bilirubin 0.6 mg/dl (0.2-1.3) 09/15/17 05:15 AST 26 U/L (14-36) 09/15/17 05:15 ALT 54 U/L (9-52) H 09/15/17 05:15 Alkaline Phosphatase 74 U/L (38-126) 09/15/17 05:15 Total Protein 6.6 G/DL (6.3-8.2) 09/15/17 05:15 Albumin 3.1 g/dL (3.5-5.0) L 09/15/17 05:15 Globulin 3.4 gm/dL (2.2-3.9) 09/15/17 05:15 Albumin/Globulin Ratio 0.9 (1.0-2.1) L 09/15/17 05:15 Urine Color Yellow (YELLOW) 09/12/17 18:55 Urine Clarity Clear (Clear) 09/12/17 18:55 Urine pH 7.0 (5.0-8.0) 09/12/17 18:55 Ur Specific Energy 1.009 (1.003-1.030) 09/12/17 18:55 Urine Protein Negative mg/dL (NEGATIVE) 09/12/17 18:55 Urine Glucose (UA) Neg mg/dL (Normal) 09/12/17 18:55 Urine Ketones Negative mg/dL (NEGATIVE) 09/12/17 18:55 Urine Blood Small (NEGATIVE) 09/12/17 18:55 Urine Nitrate Negative (NEGATIVE) 09/12/17 18:55 Urine Bilirubin Negative (NEGATIVE) 09/12/17 18:55 Urine Urobilinogen 2.0 mg/dL (0.2-1.0) H 09/12/17 18:55 Ur Leukocyte Esterase Neg Yvette/uL (Negative) 09/12/17 18:55 Urine RBC (Auto) 2 /hpf (0-3) 09/12/17 18:55 Urine Microscopic WBC 2 /hpf (0-5) 09/12/17 18:55 Ur Squamous Epith Cells 3 /hpf (0-5) 09/12/17 18:55 - Hospital Course Hospital Course: 61 yo female with history of OA, Lumbar Radiculopathy and Glaucoma had left THR on 09/10/2017 after failing conservative management and PT. She did well post op and was transferred to TCU for continuation of her PT/OT. sTABLE FOR DISCHARGE HOME , FOLLOW UP PCP AND ORTHO ONE WEEK (1) Primary osteoarthritis of left hip pain is controlled Dr Goncalves on physiatry consult continue PT/OT (2) Glaucoma continue Timolol and Lanataprost Discharge Exam - Head Exam Head Exam: ATRAUMATIC, NORMAL INSPECTION, NORMOCEPHALIC Discharge Plan - Follow Up Plan Condition: GOOD Disposition: HOME/ ROUTINE Instructions: Total Hip Replacement, Anterior Hip Replacement (DC), Anterior Total Hip Exercises, Postop Total Hip Replacement Exercises Lying Down, Postop Total Hip Replacement Exercises Standing Additional Instructions: FOLLOW UP APPOINTMENT WITH DR. STEINER FOR STAPLE REMOVAL ON 09/22/17 AT 10 AM. KEEP DRESSING DRY AND INTACT UNTIL DOCTOR APPOINTMENT . TAKE 352MG OF ASPIRIN TWICE A DAY. Referrals: Dusty Steiner III, MD [Family Provider] - FAMILY PROVIDER,NO [Primary Care Provider] -
== END 2017-09-19 12:14 | disposition home or self-care (01) | DRG 561 ==
LOC: H.TCU 15:42
PROVIDERS: ADMIT Internal Medicine; ATTEND Internal Medicine
PROC: F08Z4FZ Home Management Treatment using Assistive, Adaptive, Supportive or Protective Equipment (ICD-10-PCS; principal; 2017-09-14)
PROC: F07M6FZ Therapeutic Exercise Treatment of Musculoskeletal System - Whole Body using Assistive, Adaptive, Supportive or Protective Equipment (ICD-10-PCS; 2017-09-14)
PROC: F07Z9FZ Gait Training/Functional Ambulation Treatment using Assistive, Adaptive, Supportive or Protective Equipment (ICD-10-PCS; 2017-09-14)
DX: Z47.1 Aftercare following joint replacement surgery (principal); Z96.643 Presence of artificial hip joint, bilateral; M16.12 Unilateral primary osteoarthritis, left hip; M54.16 Radiculopathy, lumbar region; H26.9 Unspecified cataract; M19.90 Unspecified osteoarthritis, unspecified site; E66.9 Obesity, unspecified; Z68.38 Body mass index [BMI] 38.0-38.9, adult; F17.200 Nicotine dependence, unspecified, uncomplicated; H40.9 Unspecified glaucoma; I10 Essential (primary) hypertension; R50.82 Postprocedural fever